=== PATIENT | male | born 1940 | race Caucasian/White ===

== ENCOUNTER 2019-06-14 10:58 | Inpatient (IN) | payer OTHER ==
[~2019-06-14] VITALS: Ht 172.7 cm; Wt 53.9 kg
[2019-06-14 11:38] LABS: APTT 31.7 SECONDS (22.8-39.4); INR 1.15 (0.85-1.17); PROTIME 14.7 SECONDS (11.6-15.0)
[2019-06-14 11:44] LABS: CALC OSMOLALITY 277 mosm/kg (275-300); CALCIUM 9.1 mg/dL (8.5-10.1); CARBON DIOXIDE 34.8 mmol/L (21.0-32.0); CHLORIDE - SERUM 100 mmol/L (98-107); CREATININE - SERUM 0.8 mg/dL (0.6-1.3); GLUCOSE 123 mg/dL (74-106); POTASSIUM - SERUM 4.9 mmol/L (3.5-5.1); SODIUM 138 mmol/L (136-145); UREA NITROGEN 16 mg/dL (7-18); eGFR NON AFRICAN AMERICAN > 90 mL/min (90-120)
[2019-06-14 11:54] LABS: BASOPHILS 0.1 % (0-2); EOSINOPHILS 0.6 % (0-7); HEMATOCRIT 35.9 % (42.0-54.0); HEMOGLOBIN 12.1 g/dL (13.5-17.5); IMMATURE GRANULOCYTES 0.4 % (0-5); LYMPHOCYTES 13.9 % (15-50); MCH 30.6 pg (26.0-34.0); MCHC 33.7 g/dL (31.0-37.0); MCV 90.9 fL (80.0-100.0); MEAN PLATELET VOLUME 9.7 fL (7.4-10.4); MONOCYTES 10.6 % (2-11); NEUTROPHILS 74.4 % (40-80); RBC 3.95 10x6/uL (4.20-6.10); RDW 13.2 % (11.5-14.5)
[2019-06-14 11:55] LABS: PLATELET COUNT 187 10x3/uL (130-400)
[2019-06-14 12:05] LABS: ALBUMIN 3.4 g/dL (3.4-5.0); ALKALINE PHOSPHATASE 74 U/L (30-120); ALT (SGPT) 17 U/L (10-68); BILIRUBIN - TOTAL 0.82 mg/dL (0.2-1.3); CKMB 1.4 U/L (0.0-3.6); CREATINE KINASE 21 UL (21-232); PROTEIN - SERUM 7.7 g/dL (6.4-8.2)
[2019-06-14 12:07] LABS: TROPONIN-I < 0.017 ng/mL (0.000-0.060)
[2019-06-14 14:34] LABS: BILIRUBIN NEGATIVE (NEGATIVE); GLUCOSE NEGATIVE (NEGATIVE); KETONE NEGATIVE (NEGATIVE); NITRITE NEGATIVE (NEGATIVE); SPECIFIC GRAVITY 1.005 (1.005-1.020); UROBILINOGEN NORMAL (NORMAL)
[2019-06-14 15:29] LABS: CKMB 2.1 U/L (0.0-3.6); CREATINE KINASE 24 UL (21-232); TROPONIN-I 0.027 ng/mL (0.000-0.060)
--- NOTE | 2019-06-14 16:46 | NUR ---
RECIVED FROM ER TO ROOM 2129. ADMIT ASSESSMENT PER RN
[2019-06-14 21:01] LABS: CREATINE KINASE 25 UL (21-232)
[2019-06-14 21:09] LABS: TROPONIN-I 0.076 ng/mL (0.000-0.060)
[2019-06-15 05:38] LABS: BASOPHILS 0.4 % (0-2); EOSINOPHILS 1.3 % (0-7); HEMATOCRIT 32.7 % (42.0-54.0); IMMATURE GRANULOCYTES 0.2 % (0-5); LYMPHOCYTES 27.4 % (15-50); MCH 30.3 pg (26.0-34.0); MCHC 33.6 g/dL (31.0-37.0); MCV 90.1 fL (80.0-100.0); MEAN PLATELET VOLUME 9.7 fL (7.4-10.4); NEUTROPHILS 53.7 % (40-80); PLATELET COUNT 158 10x3/uL (130-400); RBC 3.63 10x6/uL (4.20-6.10); RDW 13.1 % (11.5-14.5)
[2019-06-15 06:06] LABS: ALBUMIN 2.8 g/dL (3.4-5.0); ALKALINE PHOSPHATASE 61 U/L (30-120); ALT (SGPT) 15 U/L (10-68); BILIRUBIN - TOTAL 0.98 mg/dL (0.2-1.3); CALC OSMOLALITY 274 mosm/kg (275-300); CALCIUM 8.5 mg/dL (8.5-10.1); CHLORIDE - SERUM 101 mmol/L (98-107); CREATININE - SERUM 0.7 mg/dL (0.6-1.3); GLUCOSE 89 mg/dL (74-106); MAGNESIUM - SERUM 1.9 mg/dL (1.8-2.4); POTASSIUM - SERUM 4.2 mmol/L (3.5-5.1); PROTEIN - SERUM 6.7 g/dL (6.4-8.2); SODIUM 138 mmol/L (136-145); UREA NITROGEN 13 mg/dL (7-18); eGFR NON AFRICAN AMERICAN > 90 mL/min (90-120)
[2019-06-15 06:21] LABS: WBC 5.4 10x3/uL (4.8-10.8)
[2019-06-15 10:16] LABS: CKMB 2.9 U/L (0.0-3.6); CREATINE KINASE 26 UL (21-232); TROPONIN-I 0.084 ng/mL (0.000-0.060)
--- NOTE | 2019-06-15 13:31 | NUR ---
I have reviewed this patient and I concur with the Shift Assessment completed by the Licensed Practical Nurse today this shift.
[2019-06-15 13:41] VITALS: Ht 172.7 cm; Wt 53.9 kg
--- NOTE | 2019-06-15 19:22 | NUR ---
PT AROUSES EASILY BED LOW AND LOCKED CALL LIGHT WITH PT
--- NOTE | 2019-06-16 03:47 | NUR ---
I have reviewed this patient and I concur with the Shift Assessment completed by the Licensed Practical Nurse today this shift.
[2019-06-16 05:04] LABS: BASOPHILS 0.1 % (0-2); EOSINOPHILS 0 % (0-7); HEMATOCRIT 33.6 % (42.0-54.0); HEMOGLOBIN 11.5 g/dL (13.5-17.5); IMMATURE GRANULOCYTES 0.1 % (0-5); MCH 30.3 pg (26.0-34.0); MCHC 34.2 g/dL (31.0-37.0); MCV 88.4 fL (80.0-100.0); MONOCYTES 13.3 % (2-11); NEUTROPHILS 74.5 % (40-80); PLATELET COUNT 178 10x3/uL (130-400); RDW 12.8 % (11.5-14.5)
[2019-06-16 05:15] LABS: WBC 8.4 10x3/uL (4.8-10.8)
[2019-06-16 05:28] LABS: CALCIUM 8.8 mg/dL (8.5-10.1); CHLORIDE - SERUM 101 mmol/L (98-107); CREATININE - SERUM 0.8 mg/dL (0.6-1.3); MAGNESIUM - SERUM 2.1 mg/dL (1.8-2.4); POTASSIUM - SERUM 4.6 mmol/L (3.5-5.1); SODIUM 138 mmol/L (136-145); eGFR NON AFRICAN AMERICAN > 90 mL/min (90-120)
[2019-06-16 05:29] LABS: CALC OSMOLALITY 281 mosm/kg (275-300); GLUCOSE 145 mg/dL (74-106); UREA NITROGEN 21 mg/dL (7-18)
--- NOTE | 2019-06-16 08:00 | NUR ---
ASSESSMENT DONE. DENIES NEEDS
--- NOTE | 2019-06-16 13:13 | NUR ---
I have reviewed this patient and I concur with the Shift Assessment completed by the Licensed Practical Nurse today this shift.
--- NOTE | 2019-06-16 16:09 | NUR ---
WITHOUT CHAGES OR DISTRESS NOTED AT THIS TIME. NILA NEEDS
--- NOTE | 2019-06-16 19:13 | MORECARE ---
CASE MANAGEMENT DISCHARGE SUMMARY PATIENT: SONNY NEGRON UNIT: [id number] ADM DATE: 06/14/19 AGE: 79 : 39 SEX: M ROOM/BED: D.2125 AUTHOR: BERLIN FITZPATRICK PHYSICIAN: REFERRING PHYSICIAN: AUDRA LOPES MD DATE OF SERVICE: 06/16/19 Discharge Plan Patient Name: SONNY NEGRON [facility] [facility] 1940 Planned Disposition: Penitentiary Facility Anticipated Discharge Date: Discharge Date: Expected LOS: Initial Reviewer: [id number] Initial Review Date: 06/16/2019 Generated: 06/16/19 8:13 pm DCPIA - Discharge Planning Initial Assessment Updated by [email or web address]: Barrett Duval on 06/16/19 7:10 pm * Is the patient Alert and Oriented? Yes * How many steps to enter\exit or inside your home? NONE * PCP DR. RIZVI * Pharmacy [facility] * Preadmission Environment Home with Family * ADLs Independent * Equipment Nebulizer Walker * Other Equipment [employer] * List name and contact numbers for known caregivers / representatives who currently or will assist patient after discharge: LEONEL NEGRON, SON, * Verbal permission to speak to the caregivers and representatives has been obtained from the patient. N/A * Community resources currently utilized Home Health * Please name any agencies selected above. [facility] * Additional services required to return to the preadmission environment? Yes * Can the patient safely return to the preadmission environment? Yes * Has this patient been hospitalized within the prior 30 days at any hospital? Yes Patient Name: SONNY NEGRON Page 20751 at 1913 All edits/amendments must be made on the electronic document DICTATION DATE: 06/16/191912 STEEL PAN FORM PLACING SUPERVISOR: ELICEO 06/16/191912 RPT#: [id number] DC DATE: STATUS: ADM IN [facility] [address] [place] [address] END OF REPORT
--- NOTE | 2019-06-16 19:21 | MORECARE ---
CASE MANAGEMENT DISCHARGE SUMMARY PATIENT: SONNY NEGRON UNIT: [id number] ADM DATE: 06/14/19 AGE: 79 : 39 SEX: M ROOM/BED: D.8985 AUTHOR: NANETTEDOC PHYSICIAN: REFERRING PHYSICIAN: AUDRA LOPES MD DATE OF SERVICE: 06/16/19 Discharge Plan Patient Name: SONNY NEGRON Facility: [facility]:[place] : 1940 Planned Disposition: Custodial Facility Anticipated Discharge Date: Discharge Date: Expected LOS: Initial Reviewer: [id number] Initial Review Date: 06/16/2019 Generated: 06/16/19 8:20 pm Comments DCP- Discharge Planning Updated by [id number]: Barrett Duval on 06/16/19 6:[address] Patient Name: SONNY NEGRON Admission Status: ER Accout number: [id number] Admission Date: 06-14-2019 : 1940 Admission Diagnosis: Attending: AUDRA LOPES Current LOS: 2 Anticipated DC Date: Planned Disposition: Custodial Facility Primary Insurance: [employer] PLANNED EXTERNAL PROVIDER: [facility] Discharge Planning Comments: CM SPOKE TO LESLIE HERNANDEZUT ON 06-15-19, PT [facility] TO [facility]GE, [facility] WILL ACCEPT. CM OBTAINED CHOICE LETTER FROM PT. CM PROVIDED LESLIE HERNANDEZUT WITH REFERRAL FOR PLACEMENT. ON 05-16-19, CM MET WITH PT IN ROOM TO DISCUSS DISCHARGE PLANNING AND NEEDS. PT REPORTS HE WAS LIVING AT HOME AND HIS SON WAS WITH HIM. PT REPORTS BEING VERY WEAK AND HIS SON HAS TO GO HOME AND HAS A LIFE AND JOB. PT WANTS PLACEMENT AT [facility]. IMPORTANT MESSAGE FROM MEDICARE PROVIDED AND EXPLAINED. PT IS AWARE THAT [facility] HIS ACCEPTING AT HOSPITAL DISCHARGE. FOR DISCHARGE, FAX DISCHARGE INFORMATION TO [facility] AT [phone], NURSE REPORT TO BE CALLED TO [facility] AT [phone]. [facility] TO ARRANGE VAN TRANSPORTATION. Public Relations Consultant: Barrett Duval DCPIA - Discharge Planning Initial Assessment Updated by [email or web address]: Barrett Duval on 06/16/19 7:10 pm * Is the patient Alert and Oriented? Yes * How many steps to enter\exit or inside your home? NONE * PCP DR. RIZVI * Pharmacy [facility] * Preadmission Environment Home with Family * ADLs Independent * Equipment Nebulizer Walker * Other Equipment [employer] * List name and contact numbers for known caregivers / representatives who currently or will assist patient after discharge: LEONEL NEGRON, SON, * Verbal permission to speak to the caregivers and representatives has been obtained from the patient. N/A * Community resources currently utilized Home Health * Please name any agencies selected above. [facility] * Additional services required to return to the preadmission environment? Yes * Can the patient safely return to the preadmission environment? Yes * Has this patient been hospitalized within the prior 30 days at any hospital? Yes Coverage Notice Reviewer: [id number] Darin Duval Notice Issued Date-Time: 06/16/2019 9:45 Notice Type: IM Discharge Notice Notice Delivered To: Patient Relationship to Patient: Supervisor Wall Mirror Department Name: Delivery Method: HAND - Hand Delivered Rachelle Days: Prior Verbal Notification: Recipient Understood Notice: Yes Recipient Signature: Yes Med Rec Note Co-signed by Attending: Coverage Notice Comment: Reviewer: [email or web address] Darin Duval Notice Issued Date-Time: 06/15/2019 14:35 Notice Type: Patient Choice Letter Notice Delivered To: Patient Relationship to Patient: Supervisor Wall Mirror Department Name: Delivery Method: HAND - Hand Delivered Rachelle Days: Prior Verbal Notification: Recipient Understood Notice: Yes Recipient Signature: Yes Med Rec Note Co-signed by Attending: Coverage Notice Comment: [facility] Last DP export: 06/16/19 6:13 p Patient Name: SONNY NEGRON Page 91931 at 1921 All edits/amendments must be made on the electronic document DICTATION DATE: 06/16/191919 SETTER HELPER: ELICEO 06/16/191919 RPT#: [id number] ND DATE: STATUS: ADM IN [facility] [address] [place] [address] END OF REPORT
[2019-06-17 04:57] LABS: BASOPHILS 0 % (0-2); EOSINOPHILS 0 % (0-7); HEMATOCRIT 31.7 % (42.0-54.0); HEMOGLOBIN 10.7 g/dL (13.5-17.5); IMMATURE GRANULOCYTES 0.5 % (0-5); MCH 30.1 pg (26.0-34.0); MCHC 33.8 g/dL (31.0-37.0); MEAN PLATELET VOLUME 9.5 fL (7.4-10.4); MONOCYTES 7.3 % (2-11); NEUTROPHILS 81.2 % (40-80); PLATELET COUNT 177 10x3/uL (130-400); RBC 3.56 10x6/uL (4.20-6.10); WBC 6.6 10x3/uL (4.8-10.8)
[2019-06-17 05:38] LABS: CALC OSMOLALITY 278 mosm/kg (275-300); CALCIUM 8.5 mg/dL (8.5-10.1); CARBON DIOXIDE 33.5 mmol/L (21.0-32.0); CHLORIDE - SERUM 102 mmol/L (98-107); CREATININE - SERUM 0.7 mg/dL (0.6-1.3); GLUCOSE 148 mg/dL (74-106); POTASSIUM - SERUM 4.3 mmol/L (3.5-5.1); SODIUM 137 mmol/L (136-145); UREA NITROGEN 18 mg/dL (7-18); eGFR NON AFRICAN AMERICAN > 90 mL/min (90-120)
--- NOTE | 2019-06-17 07:15 | NUR ---
RECEIVED PT IN BED EYES CLOSED RESP UNLABORED SKIN W/D COLOR WNL NAD NOTED
--- NOTE | 2019-06-17 19:30 | NUR ---
RECEIVED REPORT, WILL ASSUME CARE OF PT, DENIES ANY NEEDS AT THIS TIME, BED IS LOW, SRX2, CALL LIGHT IN REACH, WILL CONTINUE PLAN OF CARE
--- NOTE | 2019-06-17 21:00 | NUR ---
PM MEDS GIVEN, PROVIDED ICE WATER, CALL LIGHT IN REACH
--- NOTE | 2019-06-18 04:37 | NUR ---
I have reviewed this patient and I concur with the Shift Assessment completed by the Licensed Practical Nurse today this shift.
[2019-06-18 05:19] LABS: BASOPHILS 0 % (0-2); EOSINOPHILS 0 % (0-7); HEMATOCRIT 33.5 % (42.0-54.0); HEMOGLOBIN 11.3 g/dL (13.5-17.5); IMMATURE GRANULOCYTES 0.3 % (0-5); LYMPHOCYTES 11.6 % (15-50); MCH 30.1 pg (26.0-34.0); MCHC 33.7 g/dL (31.0-37.0); MCV 89.3 fL (80.0-100.0); MEAN PLATELET VOLUME 9.8 fL (7.4-10.4); MONOCYTES 8.3 % (2-11); NEUTROPHILS 79.8 % (40-80); PLATELET COUNT 169 10x3/uL (130-400); RBC 3.75 10x6/uL (4.20-6.10); WBC 7.3 10x3/uL (4.8-10.8)
[2019-06-18 06:01] LABS: CALC OSMOLALITY 283 mosm/kg (275-300); CALCIUM 9.1 mg/dL (8.5-10.1); CARBON DIOXIDE 33.6 mmol/L (21.0-32.0); CHLORIDE - SERUM 103 mmol/L (98-107); CREATININE - SERUM 0.6 mg/dL (0.6-1.3); GLUCOSE 165 mg/dL (74-106); POTASSIUM - SERUM 4.3 mmol/L (3.5-5.1); SODIUM 139 mmol/L (136-145); UREA NITROGEN 18 mg/dL (7-18); eGFR NON AFRICAN AMERICAN > 90 mL/min (90-120)
--- NOTE | 2019-06-18 07:20 | NUR ---
RECIEVE REPORT. ALERT AND ORIENTED X4. ELECTROLYTES WNL. DENIES ANY NEEDS. SINUS RYTHM ON TELEMETRY. DENIES ANY NEEDS. CONTINUE PLAN OF CARE AND SAFETY PRECAUTIONS.
--- NOTE | 2019-06-18 13:40 | NUR ---
ALERT AND ORIENTED X4. SITTING UP IN BED. REPORTS SOB. O2 SAT 87% 4L NC. INCREASE O2 TO 5L HIGH FLOW NC O2 SAT 93%. UNABLE TO RECIEVE UPDRAFT DUE TO UNCONTROLLED AFIB 143. NOTIFIED.
--- NOTE | 2019-06-18 14:26 | NUR ---
NO TX GIVEN PT HAS HR 147
--- NOTE | 2019-06-18 15:00 | NUR ---
ALERT AND ORIENTED X4. INITIATE CARDIZEM DRIP @ 10mL/HR ORDERED. BP-178/98, O2 SAT 96% WITH 9L HIGH FLOW. UNCONTROLLED AFIB 146. CONTINUE TO MONITOR. CONTINUE PLAN OF CARE AND SAFETY PRECAUTIONS.
--- NOTE | 2019-06-18 17:00 | NUR ---
ALERT AND ORIENTED X4. SITTING UP IN BED. BP-143/79, HR-116 UNCONTROLLED AFIB. RESPIRATIONS NONLABORED. DENIES ANY NEEDS AT THIS TIME. CONTINUE PLAN OF CARE AND SAFETY PRECAUTIONS.
--- NOTE | 2019-06-18 19:30 | NUR ---
RECEIVED REPORT, WILL ASSUME CARE OF PT, DENIES ANY NEEDS AT THIS TIME, BED IS LOW, SRX2, CALL LIGHT IN REACH, WILL CONTINUE PLAN OF CARE
--- NOTE | 2019-06-19 04:50 | NUR ---
I have reviewed this patient and I concur with the Shift Assessment completed by the Licensed Practical Nurse today this shift.
[2019-06-19 06:02] LABS: BASOPHILS 0 % (0-2); EOSINOPHILS 0 % (0-7); HEMATOCRIT 31.9 % (42.0-54.0); HEMOGLOBIN 10.7 g/dL (13.5-17.5); IMMATURE GRANULOCYTES 0.2 % (0-5); LYMPHOCYTES 3.6 % (15-50); MCHC 33.5 g/dL (31.0-37.0); MCV 89.4 fL (80.0-100.0); MEAN PLATELET VOLUME 9.5 fL (7.4-10.4); MONOCYTES 4.7 % (2-11); NEUTROPHILS 91.5 % (40-80); PLATELET COUNT 164 10x3/uL (130-400); RBC 3.57 10x6/uL (4.20-6.10); RDW 13.2 % (11.5-14.5)
[2019-06-19 06:03] LABS: WBC 16.9 10x3/uL (4.8-10.8)
[2019-06-19 06:56] LABS: CALCIUM 8.8 mg/dL (8.5-10.1); CARBON DIOXIDE 33.9 mmol/L (21.0-32.0); CHLORIDE - SERUM 102 mmol/L (98-107); GLUCOSE 207 mg/dL (74-106); POTASSIUM - SERUM 4.3 mmol/L (3.5-5.1); SODIUM 138 mmol/L (136-145); TROPONIN-I 0.021 ng/mL (0.000-0.060)
[2019-06-19 06:57] LABS: CALC OSMOLALITY 286 mosm/kg (275-300); CREATININE - SERUM 0.8 mg/dL (0.6-1.3); UREA NITROGEN 27 mg/dL (7-18); eGFR NON AFRICAN AMERICAN > 90 mL/min (90-120)
--- NOTE | 2019-06-19 07:20 | NUR ---
RECIEVE REPORT. RESTING IN BED WITH EYES CLOSED. BP-96/48, HR-64 SINUS RYTHM. CARDIZEM DRIP STOPPED. RESPIRATIONS NONLABORED. O2 @ 8LHF O2 SAT 100%. DENIES ANY NEEDS. CONTINUE PLAN OF CARE AND SAFETY PRECAUTIONS.
--- NOTE | 2019-06-19 11:54 | EC ---
PATIENT:SONNY NEGRON DATE OF SERVICE: 06/14/19 SEX: M MEDICAL RECORD: [id number] DATE OF : [birth year] LOCATION:D.M2 D.212 AGE OF PATIENT: 79 ADMISSION DATE: 06/14/19 REFERRING PHYSICIAN: INTERPRETING PHYSICIAN: LUCIA MARIN MD ECHOCARDIOGRAM REPORT ECHO CHARGES 5 ECHO LIMITED Date: 06/15/19 CLINICAL DIAGNOSIS: DYSPNEA HC CAD/STENTS ECHOCARDIOGRAPHIC MEASUREMENTS (adult normal given) AC root (d.<3.7cm) cm LV Septum d (<1.2 cm> cm Valve Excursion cm LV Septum (systole) cm Left Atria (s.<4.0cm> cm LVPW d(<1.2cm) cm RV (d.<2.3cm) cm LVPW (sytole) cm LV diastole(<5.6CM) cm MV E-F(>70mm/sec) cm LV systole cm LVOT Diameter cm MV exc.(>10mm) cm Est.ejection fraction (50-75%) % DOPPLER: LVIT cm/sec A cm/sec E cm/sec LA cm/sec RVSP 15 mmHg LVOT cm/sec AOP1/2T m/s Asc. Ao cm/sec RVOT cm/sec RA cm/sec PA cm/sec AV Gradient Peak mmHg AV Mean mmHg AV Area cm MV Gradient Peak mmHg MV Mean mmHg MV Area cm COMMENTS: Superintendent Plant Protection: Jono GARCIA Biomechanical Engineer: 1 Dr. Marin TAPE# PACS Pericardial Effusion N DATE OF SERVICE: PROCEDURE: Limited echo for ejection fraction. FINDINGS: Left ventricular chamber size is within normal limits. Left ventricular systolic function is normal at 50%. TRANSINT:[id number] Voice Confirmation ID: [id number] DOCUMENT ID: [id number] ECHOCARDIOGRAM REPORT [id number] SONNY NEGRON LUCIA MARIN MD at 1154 CC: [id number] DICTATION DATE: 06/16/19 1001 MANAGER FORMS: 06/16/19 1228 ADM IN [place] [id number] [place] [address]
--- NOTE | 2019-06-19 11:54 | CN ---
PATIENT NAME:SONNY MCCARTY MEDICAL RECORD: [id number] : 38 LOCATION:. D.2125 ADMIT DATE: 06/14/19 ACCOUNT: [id number] CONSULTING PHYSICIAN: LUCIA GARCIA MD REFERRING PHYSICIAN: AUDRA LOPES MD DATE OF CONSULTATION: 06/16/2019 DIAGNOSES: 1. Shortness of breath, dyspnea on exertion. 2. Chronic obstructive pulmonary disease. 3. Coronary artery disease. 4. Status post 3-vessel PTCA stent. 5. Hyperlipidemia. 6. Hypertension. HISTORY OF PRESENT ILLNESS: Mr. Mccarty presents with shortness of breath, no anginal symptomatology just shortness of breath that he is status post 3-vessel PTCA stent. After the PTCA stent, his ejection fraction was 55%. No significant valvular disease was present. He has no ST-T abnormalities. Troponin is normal at this time. He has been treated for COPD. His shortness of breath is improving. REVIEW OF SYSTEMS: The patient reports easy bruising but reports no swollen glands. The patient reports no fever, no night sweats, no significant weight gain, no significant weight loss. No significant exercise tolerance. The patient reports no dry eyes, no irritation, no vision change. Patient reports no difficulty hearing and no ear pain. Patient reports no frequent nose bleeds or nose and sinus problems. Patient reports on arm pain on exertion. No shortness of breath while lying down. No history of heart murmur. Patient reports no cough, no wheezing or coughing up blood. Patient reports no abdominal pain, no vomiting. Normal appetite. No diarrhea and not vomiting blood. No nausea and no constipation. Patient reports no incontinence. No difficulty urinating. No hematuria. No increased frequency. Patient reports no muscle aches. No weakness, no arthralgias, no back pain. No swelling of the extremities. Patient reports no abnormal mole, no jaundice, no rashes. Reports no loss of consciousness. No weakness and no numbness. No seizures, dizziness, or headaches. The patient reports no depression, no sleep disturbance, feeling safe in a relationship and no alcohol abuse. Patient reports on fatigue. Reports no runny nose or sinus pressure. No itching, no hives, and no frequent sneezing. PHYSICAL EXAMINATION: CONSTITUTIONAL/GENERAL APPEARANCE: Well nourished, well developed, appears stated age. EYES: Lids and conjunctivae noninjected. No discharge. No pallor. ENT: Lips within normal limit. No cyanosis. No pallor. NECK: Carotid arteries, bilateral normal upstroke. No bruits. No thrills. No jugular venous pressure or distention. CERVICAL LYMPH NODES: Nontender. Nonenlarged. THYROID: Not enlarged. No nodules. CARDIOVASCULAR: Precordial exam, nondisplaced. No heaves or pericardial thrills. Rate and rhythm, regular. Heart sounds, normal S1, normal S2. No S3, no gallop, no rub. Systolic murmur, not heard. Diastolic murmur, not heard. RESPIRATORY: Respiratory effort, unlabored. Normal curvature. No thoracic deformity. No chest wall tenderness. Percussion, resonant. Auscultation, CONSULT REPORT [id number] OSNNY MCCARTY clear. No wheezes, no rales, no rhonchi. ABDOMEN: Soft, nondistended, nontender. No abdominal pain, no vomiting and normal appetite. MUSCULOSKELETAL: No joint tenderness, normal gait, normal tone. SKIN: Warm and dry. OVERALL IMPRESSION: Shortness of breath. At this time, this is secondary to his COPD. No other cardiac workup or treatment is necessary. TRANSINT:[id number] Voice Confirmation ID: [id number] DOCUMENT ID: [id number] LUCIA GARCIA MD at 1154 CC: [id number] DICTATION DATE: 06/16/19 1300 STRAINER CLEANER: 06/16/19 2239 ADM IN [place] [id number] [place] [address]
--- NOTE | 2019-06-19 15:13 | NUR ---
Nutrition Follow-up: Ate ~75% of breakfast this AM but reports that lunch was too soon after and was not hungry. Attempting to drink Boost but causes some GI upset. Discussed daily wts with nurse registration manager, Katie. Diet: Cardiac, Boost TID PO intake: 61% avg x 7 meals Wt: 117# (06/17 - standing) Labs noted: Glu 207 Meds noted: Prednisone -Need new wt; daily wts ordered. -[place] food preferences. -RD following.
--- NOTE | 2019-06-19 15:53 | NUR ---
ASSIST UP TO RESTROOM. O2 SAT DROPS TO 90% WHEN AMBULATING. 02 @ 2L NC. DENIES PAIN. CONTINUE PLAN OF CARE AND SAFETY PRECAUTIONS. SINUS RYTHM 74.
--- NOTE | 2019-06-19 19:24 | NUR ---
RECEIVED LAYING IN BED WITH HOB ELEVATED. ALERT AND ORIENTED X4. USES URINAL IN BED. O2@ 2 LITERS PER N/C IN PLACE. IV TO LT FA SL. TELEMETRY IN PLACE. FALSE PASS. DENIES ANY NEEDS AT THIS TIME.
[2019-06-20 06:51] LABS: BASOPHILS 0 % (0-2); EOSINOPHILS 0 % (0-7); HEMATOCRIT 33.7 % (42.0-54.0); HEMOGLOBIN 11.3 g/dL (13.5-17.5); IMMATURE GRANULOCYTES 0.3 % (0-5); LYMPHOCYTES 8.2 % (15-50); MCH 30.2 pg (26.0-34.0); MCHC 33.5 g/dL (31.0-37.0); MCV 90.1 fL (80.0-100.0); MONOCYTES 5.1 % (2-11); NEUTROPHILS 86.4 % (40-80); PLATELET COUNT 186 10x3/uL (130-400); RBC 3.74 10x6/uL (4.20-6.10); RDW 12.9 % (11.5-14.5)
[2019-06-20 07:01] LABS: CALC OSMOLALITY 286 mosm/kg (275-300); CALCIUM 9.1 mg/dL (8.5-10.1); CARBON DIOXIDE 36.6 mmol/L (21.0-32.0); CHLORIDE - SERUM 101 mmol/L (98-107); CREATININE - SERUM 0.7 mg/dL (0.6-1.3); GLUCOSE 170 mg/dL (74-106); POTASSIUM - SERUM 4.4 mmol/L (3.5-5.1); SODIUM 139 mmol/L (136-145); UREA NITROGEN 27 mg/dL (7-18); eGFR NON AFRICAN AMERICAN > 90 mL/min (90-120)
--- NOTE | 2019-06-20 08:09 | NUR ---
ASSESSMENT DONE. DENIES NEEDS
[2019-06-20 09:00] VITALS: BP 157/77
--- NOTE | 2019-06-20 09:32 | NUR ---
I have reviewed this patient and I concur with the Shift Assessment completed by the Licensed Practical Nurse today this shift.
--- NOTE | 2019-06-20 13:31 | MORECARE ---
CASE MANAGEMENT DISCHARGE SUMMARY PATIENT: SONNY NEGRON UNIT: [id number] ADM DATE: 06/14/19 AGE: 79 : 39 SEX: M ROOM/BED: D.2128 AUTHOR: NANETTE,DOC PHYSICIAN: REFERRING PHYSICIAN: AUDRA LOPES MD DATE OF SERVICE: 06/20/19 Discharge Plan Patient Name: SONNY NEGRON Facility: [facility]:[place] : 1940 Planned Disposition: Fci Facility Anticipated Discharge Date: Discharge Date: Expected LOS: Initial Reviewer: [email or web address] Initial Review Date: 06/16/2019 Generated: 06/20/19 2:30 pm DCP- Discharge Planning Updated by [email or web address]: Barrett Duval on 06/16/19 6:[address] Patient Name: SONNY NEGRON Admission Status: ER Accout number: [id number] Admission Date: 06-14-2019 : 1940 Admission Diagnosis: Attending: AUDRA LOPES Current LOS: 2 Anticipated DC Date: Planned Disposition: Fci Facility Primary Insurance: [employer] PLANNED EXTERNAL PROVIDER: [facility], MEDICARE REHAB BED Discharge Planning Comments: CM SPOKE TO [facility]LIE [facility]SU ON 06-15-19, [facility], [facility] WILL ACCEPT. CM OBTAINED CHOICE LETTER FROM PT. CM PROVIDED LESLIE HERNANDEZUT WITH REFERRAL FOR PLACEMENT. ON 05-16-19, CM MET WITH PT IN ROOM TO DISCUSS DISCHARGE PLANNING AND NEEDS. PT REPORTS HE WAS LIVING AT HOME AND HIS SON WAS WITH HIM. PT REPORTS BEING VERY WEAK AND HIS SON HAS TO GO HOME AND HAS A LIFE AND JOB. PT WANTS PLACEMENT AT [facility]. IMPORTANT MESSAGE FROM MEDICARE PROVIDED AND EXPLAINED. PT IS AWARE THAT [facility] HIS ACCEPTING AT HOSPITAL DISCHARGE. FOR DISCHARGE, FAX DISCHARGE INFORMATION TO [facility] AT [phone], NURSE REPORT TO BE CALLED TO [facility] AT [phone]. [facility] TO ARRANGE VAN TRANSPORTATION. Psychology Physician: Barrett Duval DCPIA - Discharge Planning Initial Assessment Updated by [email or web address]: Barrett Duval on 06/16/19 7:10 pm * Is the patient Alert and Oriented? Yes * How many steps to enter\exit or inside your home? NONE * PCP DR. RIZVI * Pharmacy [facility] * Preadmission Environment Home with Family * ADLs Independent * Equipment Nebulizer Walker * Other Equipment [employer] * List name and contact numbers for known caregivers / representatives who currently or will assist patient after discharge: LEONEL NEGRON, SON, * Verbal permission to speak to the caregivers and representatives has been obtained from the patient. N/A * Community resources currently utilized Home Health * Please name any agencies selected above. [facility] * Additional services required to return to the preadmission environment? Yes * Can the patient safely return to the preadmission environment? Yes * Has this patient been hospitalized within the prior 30 days at any hospital? Yes External Providers External Provider: [facility] Next Contact Date: 06/20/2019 Service Request Date: Service Type: Resolution: Reviewer: Comments: Coverage Notice Reviewer: [email or web address] Duval Notice Issued Date-Time: 06/16/2019 9:45 Notice Type: IM Discharge Notice Notice Delivered To: Patient Relationship to Patient: Valve Fitter Name: Delivery Method: HAND - Hand Delivered Rachelle Days: Prior Verbal Notification: Recipient Understood Notice: Yes Recipient Signature: Yes Med Rec Note Co-signed by Attending: Coverage Notice Comment: Reviewer: ANTHONY Duval Notice Issued Date-Time: 06/15/2019 14:35 Notice Type: Patient Choice Letter Notice Delivered To: Patient Relationship to Patient: Valve Fitter Name: Delivery Method: HAND - Hand Delivered Rachelel Days: Prior Verbal Notification: Recipient Understood Notice: Yes Recipient Signature: Yes Med Rec Note Co-signed by Attending: Coverage Notice Comment: [facility] Last DP export: 06/16/19 6:21 p Patient Name: SONNY NEGRON Page 51114 at 1331 All edits/amendments must be made on the electronic document DICTATION DATE: 06/20/191329 ACCOUNTS RECEIVABLE MANAGER: ELICEO 06/20/19 133 RPT#: [id number] DC DATE: STATUS: ADM IN [facility] [address] [place] [address] END OF REPORT
--- NOTE | 2019-06-20 13:39 | MORECARE ---
CASE MANAGEMENT DISCHARGE SUMMARY PATIENT: SONNY NEGRON UNIT: [id number] ADM DATE: 06/14/19 AGE: 79 : 39 SEX: M ROOM/BED: D.6485 AUTHOR: NANETTE,DOC PHYSICIAN: REFERRING PHYSICIAN: AUDRA LOPES MD DATE OF SERVICE: 06/20/19 Discharge Plan Patient Name: SONNY NEGRON Facility: [facility]:[place] : 1940 Planned Disposition: Assisted Facility Anticipated Discharge Date: Discharge Date: Expected LOS: Initial Reviewer: [email or web address] Initial Review Date: 06/16/2019 Generated: 06/20/19 2:38 pm Comments DCP- Discharge Planning Updated by [id number]: Barrett Duval on 06/20/19 12:[address] Patient Name: SONNY NEGRON Encounter No: [id number] : 1940 Primary Insurance: NOVASYSMCR Anticipated DC Date: Planned Disposition: Assisted Facility External Planned Provider: [facility], MEDICARE REHAB BED Discharge Planning Comments: CM SPOKE TO [facility], , WHO INFORMED CM THAT THEY ARE PENDING AUTHORIZATION FOR SKILLED CARE FROM PT'S INSURANCE COMPANY AND NEED UPDATE; CM FAXED REFERRAL UPDATE TO [facility] OF [facility] AT [phone]. ORDER FOR OCCUPATIONAL THERAPY EVALUATION REQUESTED. PT HAS MANAGED MEDICARE AND REQUIRES OT EVALUATION FOR INSURANCE AUTHORIZATION REQUEST.. [facility] WILL NEED OCCUPATIONAL THERAPY EVALUATION FAXED TO [facility] FOR INSURANCE AUTHORIZATION FOR SKILLED / REHAB SERVICES. CM WAITING INSURANCE AUTHORIZATION FOR REHAB SERVICES AT [facility] WHO PLANS TO ACCEPT PT AT DISCHARGE. Evening Sitter: Barrett Duval DCP- Discharge Planning Updated by [id number]: Barrett Duval on 06/16/19 6:[address] Patient Name: SONNY NEGRON Admission Status: ER Accout number: [id number] Admission Date: 06-14-2019 : 1940 Admission Diagnosis: Attending: AUDRA LOPES Current LOS: 2 Anticipated DC Date: Planned Disposition: Assisted Facility Primary Insurance: NOVASYSMCR PLANNED EXTERNAL PROVIDER: [facility], MEDICARE REHAB BED Discharge Planning Comments: CM SPOKE TO [facility] ON 06-15-19, PT WANTS TO GO TO [facility] IN [facility]ILLED BED AT DISCHARGE, [facility] WILL ACCEPT. CM OBTAINED CHOICE LETTER FROM PT. CM PROVIDED [facility] WITH REFERRAL FOR PLACEMENT. ON 05-16-19, CM MET WITH PT IN ROOM TO DISCUSS DISCHARGE PLANNING AND NEEDS. PT REPORTS HE WAS LIVING AT HOME AND HIS SON WAS WITH HIM. PT REPORTS BEING VERY WEAK AND HIS SON HAS TO GO HOME AND HAS A LIFE AND JOB. PT WANTS PLACEMENT AT [facility]. IMPORTANT MESSAGE FROM MEDICARE PROVIDED AND EXPLAINED. PT IS AWARE THAT [facility] HIS ACCEPTING AT HOSPITAL DISCHARGE. FOR DISCHARGE, FAX DISCHARGE INFORMATION TO [facility] AT [phone], NURSE REPORT TO BE CALLED TO [facility] AT [phone]. [facility] TO ARRANGE VAN TRANSPORTATION. Evening Sitter: Barrett Duval DCA - Discharge Planning Initial Assessment Updated by [email or web address]: Barrett Duval on 06/16/19 7:10 pm * Is the patient Alert and Oriented? Yes * How many steps to enter\exit or inside your home? NONE * PCP DR. RIZVI * Pharmacy [facility] * Preadmission Environment Home with Family * ADLs Independent * Equipment Nebulizer Walker * Other Equipment [employer] * List name and contact numbers for known caregivers / representatives who currently or will assist patient after discharge: LEONEL NEGRON, SON, * Verbal permission to speak to the caregivers and representatives has been obtained from the patient. N/A * Community resources currently utilized Home Health * Please name any agencies selected above. [facility] * Additional services required to return to the preadmission environment? Yes * Can the patient safely return to the preadmission environment? Yes * Has this patient been hospitalized within the prior 30 days at any hospital? Yes Coverage Notice Reviewer: [id number] Darin Duval Notice Issued Date-Time: 06/16/2019 9:45 Notice Type: IM Discharge Notice Notice Delivered To: Patient Relationship to Patient: Flipping Machine Operator Name: Delivery Method: HAND - Hand Delivered Rachelle Days: Prior Verbal Notification: Recipient Understood Notice: Yes Recipient Signature: Yes Med Rec Note Co-signed by Attending: Coverage Notice Comment: Reviewer: [id number] Duval Notice Issued Date-Time: 06/15/2019 14:35 Notice Type: Patient Choice Letter Notice Delivered To: Patient Relationship to Patient: Flipping Machine Operator Name: Delivery Method: HAND - Hand Delivered Rachelle Days: Prior Verbal Notification: Recipient Understood Notice: Yes Recipient Signature: Yes Med Rec Note Co-signed by Attending: Coverage Notice Comment: ROHAN Boyd DP export: 06/20/19 12:31 p Patient Name: SONNY NEGRON Page 30018 at 1339 All edits/amendments must be made on the electronic document DICTATION DATE: 06/20/191337 DIRECTOR OF PHYSICAL THERAPY: ELICEO 06/20/191337 RPT#: [id number] DC DATE: STATUS: ADM IN [facility] [address] [place] [address] END OF REPORT
--- NOTE | 2019-06-20 14:45 | MORECARE ---
CASE MANAGEMENT DISCHARGE SUMMARY PATIENT: SONNY NEGRON UNIT: [id number] ADM DATE: 06/14/19 AGE: 79 : 39 SEX: M ROOM/BED: D.9513 AUTHOR: NANETTE,BERLIN PHYSICIAN: REFERRING PHYSICIAN: AUDRA LOPES MD DATE OF SERVICE: 06/20/19 Discharge Plan Patient Name: SONNY NEGRON Facility: [facility]:[place] : 1940 Planned Disposition: Prison Facility Anticipated Discharge Date: 06/20/19 Discharge Date: Expected LOS: 6 Initial Reviewer: [id number] Initial Review Date: 06/16/2019 Generated: 06/20/19 3:44 pm Comments DCP- Discharge Planning Updated by [id number]: Barrett Duval on 06/20/19 12:[address] Patient Name: SONNY NEGRON Encounter No: [id number] : 1940 Primary Insurance: NOVASYSMCR Anticipated DC Date: Planned Disposition: Prison Facility External Planned Provider: [facility], MEDICARE REHAB BED Discharge Planning Comments: CM SPOKE TO [facility], , WHO INFORMED CM THAT THEY ARE PENDING AUTHORIZATION FOR SKILLED CARE FROM PT'S INSURANCE COMPANY AND NEED UPDATE; CM FAXED REFERRAL UPDATE TO [facility] AT [phone]. ORDER FOR OCCUPATIONAL THERAPY EVALUATION REQUESTED. PT HAS MANAGED MEDICARE AND REQUIRES OT EVALUATION FOR INSURANCE AUTHORIZATION REQUEST.. [facility] WILL NEED OCCUPATIONAL THERAPY EVALUATION FAXED TO [facility] FOR INSURANCE AUTHORIZATION FOR SKILLED / REHAB SERVICES. CM WAITING INSURANCE AUTHORIZATION FOR REHAB SERVICES AT [facility] WHO PLANS TO ACCEPT PT AT DISCHARGE. Wet Room Worker: Barrett Duval DCP- Discharge Planning Updated by [email or web address]: Barrett Duval on 06/16/19 6:[address] Patient Name: SONNY NEGRON Admission Status: ER Accout number: [id number] Admission Date: 06-14-2019 : 1940 Admission Diagnosis: Attending: AUDRA LOPES Current LOS: 2 Anticipated DC Date: Planned Disposition: Prison Facility Primary Insurance: NOVASYSMCR PLANNED EXTERNAL PROVIDER: [facility], MEDICARE REHAB BED Discharge Planning Comments: CM SPOKE TO [facility] ON 06-15-19, PT WANTS TO GO TO [facility] IN SKILLED BED AT DISCHARGE, [facility] WILL ACCEPT. CM OBTAINED CHOICE LETTER FROM PT. CM PROVIDED [facility] WITH REFERRAL FOR PLACEMENT. ON 05-16-19, CM MET WITH PT IN ROOM TO DISCUSS DISCHARGE PLANNING AND NEEDS. PT REPORTS HE WAS LIVING AT HOME AND HIS SON WAS WITH HIM. PT REPORTS BEING VERY WEAK AND HIS SON HAS TO GO HOME AND HAS A LIFE AND JOB. PT WANTS PLACEMENT AT [facility]. IMPORTANT MESSAGE FROM MEDICARE PROVIDED AND EXPLAINED. PT IS AWARE THAT [facility] HIS ACCEPTING AT HOSPITAL DISCHARGE. FOR DISCHARGE, FAX DISCHARGE INFORMATION TO [facility] AT [phone], NURSE REPORT TO BE CALLED TO [facility] AT [phone]. [facility] TO ARRANGE VAN TRANSPORTATION. Wet Room Worker: Barrett Duval DCPIA - Discharge Planning Initial Assessment Updated by [email or web address]: Barrett Duval on 06/16/19 7:10 pm * Is the patient Alert and Oriented? Yes * How many steps to enter\exit or inside your home? NONE * PCP DR. RIZVI * Pharmacy [facility] * Preadmission Environment Home with Family * ADLs Independent * Equipment Nebulizer Walker * Other Equipment [employer] * List name and contact numbers for known caregivers / representatives who currently or will assist patient after discharge: LEONEL NEGRON, CAMMIE, * Verbal permission to speak to the caregivers and representatives has been obtained from the patient. N/A * Community resources currently utilized Home Health * Please name any agencies selected above. [facility] * Additional services required to return to the preadmission environment? Yes * Can the patient safely return to the preadmission environment? Yes * Has this patient been hospitalized within the prior 30 days at any hospital? Yes Coverage Notice Reviewer: [id number] Darin Duval Notice Issued Date-Time: 06/16/2019 9:45 Notice Type: IM Discharge Notice Notice Delivered To: Patient Relationship to Patient: Petroleum Engineering Teacher Name: Delivery Method: HAND - Hand Delivered Rachelle Days: Prior Verbal Notification: Recipient Understood Notice: Yes Recipient Signature: Yes Med Rec Note Co-signed by Attending: Coverage Notice Comment: Reviewer: ANTHONY Duval Notice Issued Date-Time: 06/15/2019 14:35 Notice Type: Patient Choice Letter Notice Delivered To: Patient Relationship to Patient: Petroleum Engineering Teacher Name: Delivery Method: HAND - Hand Delivered Rachelle Days: Prior Verbal Notification: Recipient Understood Notice: Yes Recipient Signature: Yes Med Rec Note Co-signed by Attending: Coverage Notice Comment: ROHAN Last DP export: 06/20/19 12:39 p Patient Name: SONNY NEGRON Page 39251 at 1445 All edits/amendments must be made on the electronic document DICTATION DATE: 06/20/19 1444 MICA INSPECTOR: ELICEO 06/20/19 1444 RPT#: [id number] DC DATE: STATUS: ADM IN [facility] [address] [place] [address] END OF REPORT
--- NOTE | 2019-06-20 14:53 | MORECARE ---
CASE MANAGEMENT DISCHARGE SUMMARY PATIENT: SONNY NEGRON UNIT: [id number] ADM DATE: 06/14/19 AGE: 79 : 39 SEX: M ROOM/BED: D.0089 AUTHOR: BERLIN FITZPATRICK PHYSICIAN: REFERRING PHYSICIAN: AUDRA LOPES MD DATE OF SERVICE: 06/20/19 Discharge Plan Patient Name: SONNY NEGRON Facility: [facility]:[place] : 1940 Planned Disposition: [facility] Facility Anticipated Discharge Date: 06/20/19 Discharge Date: Expected LOS: 6 Initial Reviewer: [id number] Initial Review Date: 06/16/2019 Generated: 06/20/19 3:52 pm Comments DCP- Discharge Planning Updated by [email or web address]: Barrett Duval on 06/20/19 1:[address] Patient Name: SONNY NEGRON Encounter No: [id number] : 1940 Primary Insurance: NOVASY[employer]edom Basketball LeagueCR Anticipated DC Date: 06-20-2019 Planned Disposition: [facility] Facility External Planned Provider: [facility], MEDICARE REHAB BED Discharge Planning Comments: CM RECEIVED MESSAGE FROM [facility], PT'S INSURANCE HAS PROVIDED AUTHORIZATION FOR [facility], THEY WILL ACCEPT TODAY. CM MET WITH PT AND HIS SON IN ROOM TO DISCUSS DISCHARGE PLANNING AND NEEDS. BOTH IN AGREEMENT WITH DISCHARGE TODAY TO [facility]. IMPORTANT MESSAGE FROM MEDICARE PROVIDED AND EXPLAINED. CM FAXED DISCHARGE INFORMATION TO [facility] AT [phone]. NURSE REPORT TO BE CALLED TO [facility] AT [phone]. [facility] TO ARRANGE VAN TRANSPORTATION FOR 1530 HOURS TODAY; PHOTOGRAPHIC PROCESS SCREEN MAKER NURSE NOTIFIED. Yeast Pumper: Barrett Duval DCP- Discharge Planning Updated by [email or web address]: Barrett Duval on 06/20/19 12:[address] Patient Name: SONNY NEGRON Encounter No: [id number] : 1940 Primary Insurance: NOVASYSMCR Anticipated DC Date: Planned Disposition: [facility] Facility External Planned Provider: [facility], MEDICARE REHAB BED Discharge Planning Comments: CM SPOKE TO [facility], , WHO INFORMED CM THAT THEY ARE PENDING AUTHORIZATION FOR SKILLED CARE FROM PT'S INSURANCE COMPANY AND NEED UPDATE; CM FAXED REFERRAL UPDATE TO [facility] AT [phone]. ORDER FOR OCCUPATIONAL THERAPY EVALUATION REQUESTED. PT HAS MANAGED MEDICARE AND REQUIRES OT EVALUATION FOR INSURANCE AUTHORIZATION REQUEST.. [facility] WILL NEED OCCUPATIONAL THERAPY EVALUATION FAXED TO [facility] FOR INSURANCE AUTHORIZATION FOR SKILLED / REHAB SERVICES. CM WAITING INSURANCE AUTHORIZATION FOR REHAB SERVICES AT [facility] WHO PLANS TO ACCEPT PT AT DISCHARGE. Yeast Pumper: Barrett Duval DCP- Discharge Planning Updated by [email or web address]: Barrett Duval on 06/16/19 6:[address] Patient Name: SONNY NEGRON Admission Status: ER Accout number: [id number] Admission Date: 06-14-2019 : 1940 Admission Diagnosis: Attending: AUDRA LOPES Current LOS: 2 Anticipated DC Date: Planned Disposition: [facility] Facility Primary Insurance: [employer] PLANNED EXTERNAL PROVIDER[facility] Discharge Planning Comments: CM SPOKE TO [facility] ON 06-15-19, PT WANTS TO GO TO [facility] IN SKILLED BED AT DISCHARGE, [facility] WILL ACCEPT. CM OBTAINED CHOICE LETTER FROM PT. CM PROVIDED [facility] WITH REFERRAL FOR PLACEMENT. ON 05-16-19, CM MET WITH PT IN ROOM TO DISCUSS DISCHARGE PLANNING AND NEEDS. PT REPORTS HE WAS LIVING AT HOME AND HIS SON WAS WITH HIM. PT REPORTS BEING VERY WEAK AND HIS SON HAS TO GO HOME AND HAS A LIFE AND JOB. PT WANTS PLACEMENT AT [facility]. IMPORTANT MESSAGE FROM MEDICARE PROVIDED AND EXPLAINED. PT IS AWARE THAT [facility] HIS ACCEPTING AT HOSPITAL DISCHARGE. FOR DISCHARGE, FAX DISCHARGE INFORMATION TO [facility] AT [phone], NURSE REPORT TO BE CALLED TO [facility] AT [phone]. [facility] TO ARRANGE VAN TRANSPORTATION. Yeast Pumper: Barrett Duval DCPIA - Discharge Planning Initial Assessment Updated by [id number]: Barrett Duval on 06/16/19 7:10 pm * Is the patient Alert and Oriented? Yes * How many steps to enter\exit or inside your home? NONE * PCP DR. RIZVI * Pharmacy [facility] * Preadmission Environment Home with Family * ADLs Independent * Equipment Nebulizer Walker * Other Equipment [employer] * List name and contact numbers for known caregivers / representatives who currently or will assist patient after discharge: LEONEL NEGRON, SON, * Verbal permission to speak to the caregivers and representatives has been obtained from the patient. N/A * Community resources currently utilized Home Health * Please name any agencies selected above. [facility] * Additional services required to return to the preadmission environment? Yes * Can the patient safely return to the preadmission environment? Yes * Has this patient been hospitalized within the prior 30 days at any hospital? Yes Coverage Notice Reviewer: [id number] Duval Notice Issued Date-Time: 06/16/2019 9:45 Notice Type: IM Discharge Notice Notice Delivered To: Patient Relationship to Patient: Personal Counselor Name: Delivery Method: HAND - Hand Delivered Rachelle Days: Prior Verbal Notification: Recipient Understood Notice: Yes Recipient Signature: Yes Med Rec Note Co-signed by Attending: Coverage Notice Comment: Reviewer: ANTHONY Duval Notice Issued Date-Time: 06/15/2019 14:35 Notice Type: Patient Choice Letter Notice Delivered To: Patient Relationship to Patient: Personal Counselor Name: Delivery Method: HAND - Hand Delivered Rachelle Days: Prior Verbal Notification: Recipient Understood Notice: Yes Recipient Signature: Yes Med Rec Note Co-signed by Attending: Coverage Notice Comment: LH Reviewer: ANTHONY Duval Notice Issued Date-Time: 06/20/2019 14:30 Notice Type: IM Discharge Notice Notice Delivered To: Patient Relationship to Patient: Personal Counselor Name: Delivery Method: HAND - Hand Delivered Rachelle Days: Prior Verbal Notification: Recipient Understood Notice: Yes Recipient Signature: Yes Med Rec Note Co-signed by Attending: Coverage Notice Comment: Last DP export: 06/20/19 1:45 p Patient Name: SONNY NEGRON Page [phone] Electronically Signed by [facility] CIT[facility]jay on 06/20/19 at 1453 All edits/amendments must be made on the electronic document DICTATION DATE: 06/20/191451 LOG DECKMAN: ELICEO 06/20/191451 RPT#: [id number] DC DATE: STATUS: ADM IN [facility] [address] [place] [address] END OF REPORT
--- NOTE | 2019-06-20 15:40 | NUR ---
REPORT CALLED TO KIMBER ALDANA
--- NOTE | 2019-06-20 16:00 | NUR ---
DC TO [facility] PER [facility]
== END 2019-06-20 16:00 | DRG 189 ==
LOC: D.ER 10:58 → D.M2 14:30
PROVIDERS: Family Medicine; Internal Medicine Nephrology; ADMIT Family Medicine; ATTEND Family Medicine
DX: J96.21 Acute and chronic respiratory failure with hypoxia (principal); J98.11 Atelectasis; J96.22 Acute and chronic respiratory failure with hypercapnia; I25.10 Atherosclerotic heart disease of native coronary artery without angina pectoris; D64.9 Anemia, unspecified; J43.9 Emphysema, unspecified; I10 Essential (primary) hypertension; E78.00 Pure hypercholesterolemia, unspecified; G62.9 Polyneuropathy, unspecified; I48.91 Unspecified atrial fibrillation; Z87.891 Personal history of nicotine dependence

== ENCOUNTER 2019-06-30 05:52 | Inpatient (IN) | payer OTHER ==
[2019-06-30] VITALS (8 sets, daily range): BP systolic 98–183; BP diastolic 45–84; BMI 19.0
[~2019-06-30] VITALS: Ht 172.7 cm; Wt 56.7 kg
--- NOTE | ~2019-06-30 | CN ---
PATIENT NAME:SONNY NEGRON MEDICAL RECORD: [id number] : 38 LOCATION:D.MS Alexandra2208 ADMIT DATE: 06/30/19 ACCOUNT: [id number] CONSULTING PHYSICIAN: LEVON COSTA MD REFERRING PHYSICIAN: MI MODI MD DATE OF CONSULTATION: 07/03/2019 HISTORY OF PRESENT ILLNESS: Mr. Negron is an 79-year-old male admitted 2 or 3 days ago with cough, fever, shortness of breath. He is on nasal cannula oxygen and he is on Plavix and aspirin. According to his nurse, he has been coughing up some bloody sputum yesterday, he had a packing in the left side of the nose, packings is about 1-2 cm maybe, about 8 centimeter along packings so it was just barely in there, but he said it stopped any bleeding. He got a low platelet count about 128,000. On physical exam, he is awake, alert. He has got the nasal oxygen in his mouth. Packing hanging out the left side of his nose. No distress, no bleeding. A look in the right side of his nose completely clear, no blood, no crust. No drainage. Wide open and looks good. ORAL CAVITY AND OROPHARYNX: Dry, but no lesions, no mass, no blood in the posterior pharynx. I removed the packing from the left side of the nose, this was not appropriate. It was hanging out in the way and was just going to move around. I removed that and looked his nose, it is open and looks good. He has got a vein on the left caudal septum, this is obviously the source of the problem, a little bit of ooze towards the inferior portion of that, still several millimeters above the nasal sill on that left side. The rest of the nasal mucosa all looks good. There is a little bit of moisture there, but it has been packed. I placed a large cotton ball in the left side of the nose with some Surgilube to keep the area moist and packed that in there. It was not bleeding any but that is going to keep it moist, so it can heal up. I talked to the nurse about what to do for bleeding with a new large cotton ball with some Afrin on it should take care of the bleeding, but I am not going to give him any Afrin. He can use Jasper gel spray or some Surgilube if there is any dryness in the anterior nose, avoid Vaseline because of the oxygen that he is on and he is going to leave the cotton ball in there and therefore 24-48 hours if it will stay and then replace it if need for bleeding. TRANSINT:[id number] Voice Confirmation ID: [id number] DOCUMENT ID: [id number] LEVON COSTA MD CC: [id number] DICTATION DATE: 07/03/19 1043 BILLING COORDINATOR: 07/03/192027 ADM IN [facility] [id number] [place] [address]
[~2019-06-30 05:52] MED LIST: BAYER CHEWABLE81 MG; BAYER CHEWABLE81 MG PO; COREG6.25 MG PO; GABAPENTIN100 MG PO; HYDROCODON-ACE1 EAC7 PO; IPRAT-ALBUT 0.5-3 ML UPD; LEVOFLOXACIN500 MG PO; MUCINEX600 MG PO; NEURONTIN800 MG PO; OMNICEF300 MG PO; PLAVIX75 MG PO; PRAVASTATIN SOD10 MG PO; PREDNISONE20 MG PO; PROTONIX40 MG PO; PULMICORT0.25 MG/1 INH; VALIUM5 MG PO; ZITHROMAX250 MG PO
[2019-06-30 06:55] LABS: CALC OSMOLALITY 279 mosm/kg (275-300); CALCIUM 8.5 mg/dL (8.5-10.1); CARBON DIOXIDE 34.4 mmol/L (21.0-32.0); CHLORIDE - SERUM 100 mmol/L (98-107); CREATININE - SERUM 0.7 mg/dL (0.6-1.3); GLUCOSE 193 mg/dL (74-106); POTASSIUM - SERUM 4.4 mmol/L (3.5-5.1); SODIUM 137 mmol/L (136-145); UREA NITROGEN 15 mg/dL (7-18); eGFR NON AFRICAN AMERICAN > 90 mL/min (90-120)
--- NOTE | 2019-06-30 07:05 | NUR ---
ASSUMED CARE OF PT. RESTING UPRIGHT, A/A/OX3. "I FEEL BETTER". DENIES PAIN OR DISCOMFORT
[2019-06-30 07:17] LABS: ALKALINE PHOSPHATASE 89 U/L (30-120); ALT (SGPT) 18 U/L (10-68); BILIRUBIN - TOTAL 0.84 mg/dL (0.2-1.3); CKMB 3.1 U/L (0.0-3.6); CREATINE KINASE 24 UL (21-232); PRO BNP 1623 pg/mL (0-450)
[2019-06-30 07:21] LABS: TROPONIN-I 0.067 ng/mL (0.000-0.060)
[2019-06-30 07:22] LABS: BASOPHILS 0 % (0-2); EOSINOPHILS 0 % (0-7); HEMATOCRIT 36.7 % (42.0-54.0); HEMOGLOBIN 12.1 g/dL (13.5-17.5); IMMATURE GRANULOCYTES 0.5 % (0-5); LYMPHOCYTES 3.1 % (15-50); MCH 30.1 pg (26.0-34.0); MCV 91.3 fL (80.0-100.0); MEAN PLATELET VOLUME 9.9 fL (7.4-10.4); MONOCYTES 6.7 % (2-11); NEUTROPHILS 89.7 % (40-80); PLATELET COUNT 181 10x3/uL (130-400); RBC 4.02 10x6/uL (4.20-6.10); RDW 12.8 % (11.5-14.5); WBC 23.3 10x3/uL (4.8-10.8)
--- NOTE | 2019-06-30 07:22 | NUR ---
CRITICAL LAB: TROPONIN 0.067
--- NOTE | 2019-06-30 07:35 | NUR ---
BC'S X 2 DRAWN THEN ABXS INITITATED
[2019-06-30 07:43] LABS: APTT 25.3 SECONDS (22.8-39.4); INR 1.19 (0.85-1.17)
--- NOTE | 2019-06-30 08:20 | NUR ---
REPORT CALLED TO ZBIGNIEW AYALA
--- NOTE | 2019-06-30 08:35 | NUR ---
TRANSPORTED TO ROOM #2208, CONDITION STABLE
--- NOTE | 2019-06-30 09:00 | NUR ---
PATIENT RECEIVED TO ROOM 2208 VIA STRETCHER FROM ER. A/O X3. C/O SOB AT THIS TIME. SATS IN THE HIGH 90'S ON 10L. WILL MONITOR. SKIN IS INTACT WITHOUT REDNESS. DENIES NEEDS.
--- NOTE | 2019-06-30 09:30 | NUR ---
ASSISTED TO STAND AT BEDSIDE. VOIDED 300CC CLEAR YELLOW URINE IN URINAL. REPOSITIONED IN BED FOR COMFORT.
--- NOTE | 2019-06-30 10:35 | NUR ---
GOWN CHANGED AND LINENS PER STAFF. PATIENT ASSISTED WITHOUT C/O. SAT AT 97% ON 10L. PATIENT REPORTS BREATHING FEELS BETTER AT THIS TIME.
[2019-06-30 13:07] LABS: CKMB 2.9 U/L (0.0-3.6); CREATINE KINASE 23 UL (21-232); TROPONIN-I 0.099 ng/mL (0.000-0.060)
--- NOTE | 2019-06-30 19:15 | NUR ---
ALERT AND ORIENTED. SOFT SPOKEN AND HARD OF HEARING BUT ANSWERS QUESTIONS APPROPRIATELY. PATIENT WEARING 5L HFC. HAS A LEFT WRIST IV THAT IS SALINE LOCKED. RIGHT FOREARM INFUSING LR @ 100. ASSISTED PATIENT ON WITH BED MENDEZ. PATIENT HAD LARGE BM. NO BREAKDOWN NOTED TO BUTTOCKS AT THIS TIME. WEARING TELE. DENIES NEEDS AT THIS TIME. BED ALARM ON. CALL LIGHT IN REACH. CPOC.
[2019-06-30 19:21] LABS: CKMB 2.8 U/L (0.0-3.6); CREATINE KINASE 19 UL (21-232); TROPONIN-I 0.055 ng/mL (0.000-0.060)
[2019-07-01] VITALS (7 sets, daily range): BP systolic 103–135; BP diastolic 52–81
--- NOTE | 2019-07-01 00:47 | NUR ---
LEFT WRIST IV DC'D. NO INFILTRATION OR SWELLING NOTED. CPOC.
[2019-07-01 01:48] LABS: CKMB 2.3 U/L (0.0-3.6); CREATINE KINASE 20 UL (21-232); TROPONIN-I 0.037 ng/mL (0.000-0.060)
--- NOTE | 2019-07-01 03:18 | NUR ---
I have reviewed this patient and I concur with the Shift Assessment completed by the Licensed Practical Nurse today this shift.
[2019-07-01 05:04] LABS: HEMATOCRIT 31.7 % (42.0-54.0); HEMOGLOBIN 10.7 g/dL (13.5-17.5); MCH 30.4 pg (26.0-34.0); MCHC 33.8 g/dL (31.0-37.0); MCV 90.1 fL (80.0-100.0); MEAN PLATELET VOLUME 9.6 fL (7.4-10.4); PLATELET COUNT 141 10x3/uL (130-400); RBC 3.52 10x6/uL (4.20-6.10); RDW 12.9 % (11.5-14.5); WBC 20.1 10x3/uL (4.8-10.8)
[2019-07-01 05:13] LABS: ALBUMIN 2.6 g/dL (3.4-5.0); ALKALINE PHOSPHATASE 59 U/L (30-120); ALT (SGPT) 15 U/L (10-68); BILIRUBIN - TOTAL 1.64 mg/dL (0.2-1.3); CALCIUM 8.7 mg/dL (8.5-10.1); CARBON DIOXIDE 34.7 mmol/L (21.0-32.0); CHLORIDE - SERUM 100 mmol/L (98-107); CREATININE - SERUM 0.7 mg/dL (0.6-1.3); MAGNESIUM - SERUM 1.5 mg/dL (1.8-2.4); PHOSPHOROUS 2.9 mg/dL (2.5-4.9); PROTEIN - SERUM 6.5 g/dL (6.4-8.2); SODIUM 137 mmol/L (136-145); UREA NITROGEN 12 mg/dL (7-18); eGFR NON AFRICAN AMERICAN > 90 mL/min (90-120)
[2019-07-01 05:14] LABS: CALC OSMOLALITY 273 mosm/kg (275-300); GLUCOSE 100 mg/dL (74-106); POTASSIUM - SERUM 3.6 mmol/L (3.5-5.1)
[2019-07-01 05:45] LABS: LYMPHOCYTES 8 % (15-50); MONOCYTES 5 % (2-11); NEUTROPHILS 87 % (40-80); PLATELET ESTIMATE NORMAL
--- NOTE | 2019-07-01 07:30 | NUR ---
FROM THE ER THIS MORNING. O2 AT 3 LITERS NC. DENIES ANY PAIN. STATES "I AM BREATHING BETTER". BP LITTLE LOW, 'S NURSE NOTIFIED.
--- NOTE | 2019-07-01 08:43 | NUR ---
ON 6 L HIGH FLOW, NO SOB, UP AND DOWN TO THE BSC, 2 BM'S THIS MORNING.
--- NOTE | 2019-07-01 19:00 | NUR ---
PATIENT ALERT AND ORIENTED. ANSWERS QUESTIONS APPROPRIATELY. PATIENT IS HARD OF HEARING. SPEAKS SOFTLY. CURRENTLY WEARING 5L NC. PATIENT HAS RIGHT FOREARM INFUSING NS @ 50. PATIENT HAS WET COUGH, HAS YONKER AT HAND TO SUCTION SELF. LUNG SOUNDS WITH INSPIRATORY AND EXPIRATORY WHEEZES. PATIENT GETS DYNPNIC UPON EXERTION, EVEN TO BSC. PATIENT HAS TELE. 118 SINUS TACH AT THIS TIME. BED ALARM ON. DENIES NEEDS AT THIS TIME. HAS CALL LIGHT IN REACH. CPOC.
--- NOTE | 2019-07-01 22:51 | NUR ---
ASSISTED TO BEDSIDE COMMODE. LINEN CHANGE PROVIDED. DENIES FURTHER NEEDS. CPOC.
--- NOTE | 2019-07-01 23:00 | NUR ---
I have reviewed this patient and I concur with the Shift Assessment completed by the Licensed Practical Nurse today this shift.
[2019-07-02] VITALS: BP 122/61
--- NOTE | 2019-07-02 00:14 | NUR ---
ASSISTED PATIENT TO BEDSIDE COMMODE.
[2019-07-02 04:00] VITALS: BP 128/63
[2019-07-02 06:40] LABS: BASOPHILS 0.1 % (0-2); EOSINOPHILS 0 % (0-7); HEMATOCRIT 32.1 % (42.0-54.0); HEMOGLOBIN 10.7 g/dL (13.5-17.5); IMMATURE GRANULOCYTES 0.4 % (0-5); LYMPHOCYTES 10.6 % (15-50); MCH 30.4 pg (26.0-34.0); MCHC 33.3 g/dL (31.0-37.0); MCV 91.2 fL (80.0-100.0); MEAN PLATELET VOLUME 9.7 fL (7.4-10.4); NEUTROPHILS 79.9 % (40-80); PLATELET COUNT 142 10x3/uL (130-400); RBC 3.52 10x6/uL (4.20-6.10)
[2019-07-02 06:49] LABS: WBC 12.2 10x3/uL (4.8-10.8)
[2019-07-02 07:18] LABS: ALBUMIN 2.5 g/dL (3.4-5.0); ALKALINE PHOSPHATASE 60 U/L (30-120); ALT (SGPT) 15 U/L (10-68); BILIRUBIN - TOTAL 1.98 mg/dL (0.2-1.3); CALC OSMOLALITY 265 mosm/kg (275-300); CALCIUM 8.4 mg/dL (8.5-10.1); CHLORIDE - SERUM 93 mmol/L (98-107); CREATININE - SERUM 0.7 mg/dL (0.6-1.3); GLUCOSE 115 mg/dL (74-106); MAGNESIUM - SERUM 1.5 mg/dL (1.8-2.4); POTASSIUM - SERUM 3.1 mmol/L (3.5-5.1); PROTEIN - SERUM 6.6 g/dL (6.4-8.2); SODIUM 132 mmol/L (136-145); UREA NITROGEN 13 mg/dL (7-18); eGFR NON AFRICAN AMERICAN > 90 mL/min (90-120)
--- NOTE | 2019-07-02 08:06 | NUR ---
LESS SOB THIS MORNING, COUGHING UP STUFF USING THE SUCTION TO GET IT OUT OF HIS MOUTH. 4.5 L HIGH FLOW, DENIES ANY PAIN.
[2019-07-02 08:38] VITALS: BP 129/58
[2019-07-02 12:33] VITALS: BP 122/70
[2019-07-02 15:36] LABS: INR 1.3 (0.85-1.17); PROTIME 16.1 SECONDS (11.6-15.0)
[2019-07-02 17:07] VITALS: BP 125/65
--- NOTE | 2019-07-02 17:48 | NUR ---
HE WAS BLOWING HIS NOSE AND IT WAS BLEEDING. HE COUGHED UP SOME BLOOD. DR'S AWARE, HE HELD PRESSURE TO HIS NOSE AND IT STOPPED BLEEDING AFTER ABOUT 30 MINUTES AFTER BLOWING HIS NOSE A FEW TIMES. LABS DRAWN AND DR. QUINONEZ ASSESSED THE PATIENT AND ORDERED SOME NOSE SPRAY.
[2019-07-02 20:00] VITALS: BP 135/74
--- NOTE | 2019-07-02 22:30 | NUR ---
ANSWERED PATIENT CALL LIGHT. PATIENT COUGHED UP LARGE, STRINGY BLOOD CLOT. SHOWED TO CHARGE NURSE. VITALS STABLE. PATIENT STATES HE FEELS BETTER AGTER COUGHING UP. CPOC.
[2019-07-03] VITALS: BP 137/69
--- NOTE | 2019-07-03 01:49 | NUR ---
I have reviewed this patient and I concur with the Shift Assessment completed by the Licensed Practical Nurse today this shift.
--- NOTE | 2019-07-03 01:56 | NUR ---
PATIENT NOW ATTEMPTING TO USE URINAL RATHER THAN BEDSIDE COMMODE. PLACED NEW URINAL IN ROOM IN HOPES TO OBTAIN CLEAN CATCH SAMPLE FOR URINE REFLEX.
[2019-07-03 03:31] LABS: BILIRUBIN NEGATIVE (NEGATIVE); GLUCOSE NEGATIVE (NEGATIVE); KETONE SMALL mg/dL (NEGATIVE); NITRITE NEGATIVE (NEGATIVE); UROBILINOGEN NORMAL (NORMAL)
[2019-07-03 03:32] LABS: BACTERIA FEW /hpf (NEGATIVE); EPITHELIAL CELLS 0-5 /hpf (0-5); RED CELLS - URINE 0-5 /hpf (0-5); WHITE CELLS - URINE 0-5 /hpf (NEGATIVE)
[2019-07-03 04:00] VITALS: BP 149/74
[2019-07-03 04:46] LABS: BASOPHILS 0.1 % (0-2); EOSINOPHILS 0.1 % (0-7); HEMATOCRIT 28.8 % (42.0-54.0); HEMOGLOBIN 9.6 g/dL (13.5-17.5); IMMATURE GRANULOCYTES 0.4 % (0-5); LYMPHOCYTES 17.6 % (15-50); MCH 29.6 pg (26.0-34.0); MCHC 33.3 g/dL (31.0-37.0); MEAN PLATELET VOLUME 9.7 fL (7.4-10.4); MONOCYTES 8.2 % (2-11); NEUTROPHILS 73.6 % (40-80); PLATELET COUNT 128 10x3/uL (130-400); RBC 3.24 10x6/uL (4.20-6.10); RDW 12.6 % (11.5-14.5)
[2019-07-03 04:58] LABS: MCV 88.9 fL (80.0-100.0); WBC 7.5 10x3/uL (4.8-10.8)
[2019-07-03 05:20] LABS: ALBUMIN 2.2 g/dL (3.4-5.0); ALKALINE PHOSPHATASE 53 U/L (30-120); ALT (SGPT) 16 U/L (10-68); BILIRUBIN - TOTAL 1.63 mg/dL (0.2-1.3); CALC OSMOLALITY 272 mosm/kg (275-300); CALCIUM 7.9 mg/dL (8.5-10.1); CARBON DIOXIDE 31.8 mmol/L (21.0-32.0); CHLORIDE - SERUM 99 mmol/L (98-107); CREATININE - SERUM 0.6 mg/dL (0.6-1.3); GLUCOSE 146 mg/dL (74-106); MAGNESIUM - SERUM 1.5 mg/dL (1.8-2.4); POTASSIUM - SERUM 3.6 mmol/L (3.5-5.1); SODIUM 134 mmol/L (136-145); eGFR NON AFRICAN AMERICAN > 90 mL/min (90-120)
[2019-07-03 05:22] LABS: UREA NITROGEN 17 mg/dL (7-18)
--- NOTE | 2019-07-03 08:03 | NUR ---
HIS NOSE IS BLEEDING AGAIN THIS MORNING. PLACED A TAMPOON IN THE LEFT NARE. O2 OK ON 3 LITERS, DENIES ANY NEW NEEDS.
[2019-07-03 08:56] VITALS: BP 140/76
[2019-07-03 13:24] VITALS: BP 122/74
--- NOTE | 2019-07-03 14:01 | MORECARE ---
CASE MANAGEMENT DISCHARGE SUMMARY PATIENT: SONNY NEGRON UNIT: [id number] ADM DATE: 06/30/19 AGE: 79 : 39 SEX: M ROOM/BED: D.2208 AUTHOR: BERLIN FITZPATRICK PHYSICIAN: REFERRING PHYSICIAN: MI MODI MD DATE OF SERVICE: 07/03/19 Discharge Plan Patient Name: SONNY NEGRON [facility] [facility] 1940 Planned Disposition: Snf Facility Anticipated Discharge Date: Discharge Date: Expected LOS: Initial Reviewer: [id number] Initial Review Date: 06/30/2019 Generated: 07/03/19 3:00 pm Patient Name: SONNY NEGRON Page 85898 at 1401 All edits/amendments must be made on the electronic document DICTATION DATE: 07/03/19 1400 MACHINE TRY OUT SETTER: ELICEO 07/03/19 1400 RPT#: [id number] DC DATE: STATUS: ADM IN [facility] [address] [place] [address] END OF REPORT
--- NOTE | 2019-07-03 14:09 | MORECARE ---
CASE MANAGEMENT DISCHARGE SUMMARY PATIENT: SONNY NEGRON UNIT: [id number] ADM DATE: 06/30/19 AGE: 79 : 39 SEX: M ROOM/BED: D.2208 AUTHOR: BERLIN FITZPATRICK PHYSICIAN: REFERRING PHYSICIAN: MI MODI MD DATE OF SERVICE: 07/03/19 Discharge Plan Patient Name: SONNY NEGRON Facility: [facility]:[place] : 1940 Planned Disposition: Assisted Facility Anticipated Discharge Date: Discharge Date: Expected LOS: Initial Reviewer: [id number] Initial Review Date: 06/30/2019 Generated: 07/03/19 3:09 pm Comments DCP- Discharge Planning Updated by [email or web address]: Mikki Kevin on 07/03/19 1:[address] Patient Name: SONNY NEGRON Admission Status: ER Accout number: [id number] Admission Date: 06-30-2019 : 1940 Admission Diagnosis:SEPSIS, UNSPECIFIED ORGANISM Attending: MIKE MODI Current LOS: 3 Anticipated DC Date: Planned Disposition: Assisted Facility Primary Insurance: [employer] Discharge Planning Comments: CM met with patient to complete initial dc planning assessment. CM educated patient on the CM role and verbal consent given by patient to complete assessment. Patient was admitted from [facility] from a skilled bed. He plans to return there at discharge. I have contacted [facility] and will send clinicals to start the Auth process again. Patient denied known discharge needs at this time. CM will continue to follow and will assist as needed with dc plans/needs. Microsoft Windows Engineer: Mikki Kevin DCPIA - Discharge Planning Initial Assessment Updated by [email or web address]: Mikki Kevin on 07/03/19 2:01 pm * Is the patient Alert and Oriented? Yes * How many steps to enter\exit or inside your home? none * PCP madhu * Pharmacy [facility] * Preadmission Environment Home with Family * ADLs Independent * Equipment Nebulizer Rolling Walker * List name and contact numbers for known caregivers / representatives who currently or will assist patient after discharge: LEONEL (SON)[phone] * Verbal permission to speak to the caregivers and representatives has been obtained from the patient. N/A * Additional services required to return to the preadmission environment? Yes * Can the patient safely return to the preadmission environment? Yes * Has this patient been hospitalized within the prior 30 days at any hospital? Yes Last DP export: 07/03/19 1:01 pm Patient Name: SONNY NEGRON Page 02877 at 1409 All edits/amendments must be made on the electronic document DICTATION DATE: 07/03/191408 PETROLEUM PRODUCTION ENGINEER: DM 07/03/191408 RPT#: [id number] DC DATE: STATUS: ADM IN [facility] [address] [place] [address] END OF REPORT
--- NOTE | 2019-07-03 14:24 | MORECARE ---
CASE MANAGEMENT DISCHARGE SUMMARY PATIENT: SONNY NEGRON UNIT: [id number] ADM DATE: 06/30/19 AGE: 79 : 39 SEX: M ROOM/BED: D.2208 AUTHOR: BERLIN FITZAPTRICK PHYSICIAN: REFERRING PHYSICIAN: MI MODI MD DATE OF SERVICE: 07/03/19 Discharge Plan Patient Name: SONNY NEGRON Facility: [facility]:[place] : 1940 Planned Disposition: Detention Facility Anticipated Discharge Date: Discharge Date: Expected LOS: Initial Reviewer: [id number] Initial Review Date: 06/30/2019 Generated: 07/03/19 3:24 pm Comments DCP- Discharge Planning Updated by [email or web address]: Mikki Kevin on 07/03/19 1:[address] Patient Name: SONNY NEGRON Admission Status: ER Accout number: [id number] Admission Date: 06-30-2019 : 1940 Admission Diagnosis:SEPSIS, UNSPECIFIED ORGANISM Attending: MIKE MODI Current LOS: 3 Anticipated DC Date: Planned Disposition: Detention Facility Primary Insurance: [employer] Discharge Planning Comments: CM met with patient to complete initial dc planning assessment. CM educated patient on the CM role and verbal consent given by patient to complete assessment. Patient was admitted from [facility] from a skilled bed. He plans to return there at discharge. I have contacted [facility] and will send clinicals to start the Auth process again. Patient denied known discharge needs at this time. CM will continue to follow and will assist as needed with dc plans/needs. Historian Dramatic Arts: Mikki Kevin DCPIA - Discharge Planning Initial Assessment Updated by [email or web address]: Mikki Kevin on 07/03/19 2:01 pm * Is the patient Alert and Oriented? Yes * How many steps to enter\exit or inside your home? none * PCP madhu * Pharmacy [facility] * Preadmission Environment Home with Family * ADLs Independent * Equipment Nebulizer Rolling Walker * List name and contact numbers for known caregivers / representatives who currently or will assist patient after discharge: LEONEL (SON)[phone] * Verbal permission to speak to the caregivers and representatives has been obtained from the patient. N/A * Additional services required to return to the preadmission environment? Yes * Can the patient safely return to the preadmission environment? Yes * Has this patient been hospitalized within the prior 30 days at any hospital? Yes External Providers External Provider: [facility] Next Contact Date: Service Request Date: Service Type: Resolution: Reviewer: Comments: Last DP export: 07/03/19 1:09 pm Patient Name: SONNY NEGRON Page 31438 at 1424 All edits/amendments must be made on the electronic document DICTATION DATE: 07/03/19 142 FORESTRY TREE PRUNER: ELICEO 07/03/19 1424 RPT#: [id number] DC DATE: STATUS: ADM IN [facility] [address] [place] [address] END OF REPORT
--- NOTE | 2019-07-03 15:35 | NUR ---
DR COSTA ROUNDED, PACKED THE LEFT NARE. HE IS NOW UP IN THE CHAIR. NO NOSE BLEED SO FAR.
--- NOTE | 2019-07-03 15:45 | NUR ---
OT NOTE: PT DOING WELL TODAY. APPARENTLY HAD BAD NOSE BLEED THIS AM. PT WANTED TO GET UP OUT OF BED. BED MOB WITH MIN ASSIST; SIMPLE GROOMING TASK INCLUDING SHAVING WITH ELEC RAZOR, WASHING FACE AND HANDS, AND COMBING HAIR WITH SET UP; BED MOB WITH MIN ASSIST; ABLE TO TRANSFER FROM BED TO CHAIR WITH RW AND MIN ASSIST. ALARM PAD PLACED IN CHAIR; NURSING NOTIFIED. BRIANA BRINK, OTR/L [phone]
[2019-07-03 17:28] VITALS: BP 130/59
--- NOTE | 2019-07-03 19:30 | NUR ---
A&O X 4. EXTREMELY EMMONAK. DENIES PAIN/DISCOMFORT. SUCTION AT BEDSIDE, PT ON HONEY THICKENED LIQUIDS, PT TOLERATING WELL, WILL CONTINUE TO MONITOR.
[2019-07-03 20:00] VITALS: BP 114/59
--- NOTE | 2019-07-03 20:10 | NUR ---
OT NOTE: PT COMPLETED EOB SITTING WITH SBA. PT COMPLETED SUPINE TO SIT WITH CGA. PT COMPLETED FACE AND HAND HYGIENE WITH SET UP. PT STATED AT REHAB HE WAS SO CLOSE TO GOING HOME. BARNEY ENCOURAGED PT TO CONTINUE PARTICIPATING WITH THERAPY IN ORDER TO GET STRONGER. [phone] THANK YOU,ECTOR VASQUEZ
[2019-07-04] VITALS: BP 135/65
[2019-07-04 04:00] VITALS: BP 146/61
--- NOTE | 2019-07-04 05:43 | NUR ---
I have reviewed this patient and I concur with the Shift Assessment completed by the Licensed Practical Nurse today this shift.
[2019-07-04 07:21] LABS: BASOPHILS 0 % (0-2); EOSINOPHILS 0 % (0-7); HEMATOCRIT 26.4 % (42.0-54.0); HEMOGLOBIN 8.9 g/dL (13.5-17.5); IMMATURE GRANULOCYTES 0.4 % (0-5); LYMPHOCYTES 23.6 % (15-50); MCH 29.5 pg (26.0-34.0); MCHC 33.7 g/dL (31.0-37.0); MCV 87.4 fL (80.0-100.0); MEAN PLATELET VOLUME 9.6 fL (7.4-10.4); MONOCYTES 10.6 % (2-11); NEUTROPHILS 65.4 % (40-80); PLATELET COUNT 121 10x3/uL (130-400); RBC 3.02 10x6/uL (4.20-6.10); RDW 12.7 % (11.5-14.5)
[2019-07-04 07:24] LABS: WBC 5.5 10x3/uL (4.8-10.8)
[2019-07-04 07:39] LABS: ALBUMIN 2.2 g/dL (3.4-5.0); ALKALINE PHOSPHATASE 54 U/L (30-120); ALT (SGPT) 19 U/L (10-68); BILIRUBIN - TOTAL 1.21 mg/dL (0.2-1.3); CALC OSMOLALITY 273 mosm/kg (275-300); CALCIUM 7.5 mg/dL (8.5-10.1); CARBON DIOXIDE 31.7 mmol/L (21.0-32.0); CHLORIDE - SERUM 97 mmol/L (98-107); CREATININE - SERUM 0.5 mg/dL (0.6-1.3); GLUCOSE 142 mg/dL (74-106); POTASSIUM - SERUM 3.4 mmol/L (3.5-5.1); PROTEIN - SERUM 5.6 g/dL (6.4-8.2); SODIUM 136 mmol/L (136-145); UREA NITROGEN 13 mg/dL (7-18); VANCOMYCIN - TROUGH 14.4 ug/mL (10.0-20.0); eGFR NON AFRICAN AMERICAN > 90 mL/min (90-120)
--- NOTE | 2019-07-04 08:09 | NUR ---
PATIENT RECIEVED FROM PREVIOUS NURSE RESTING IN BED WITH NO DISTRESS. ALERT AND ORIENTED. RESPIRATIONS REGULAR AND NON-LABORED, 02 2.5L HF. CL IN REACH
[2019-07-04 10:07] VITALS: BP 155/68
[2019-07-04 14:39] VITALS: BP 131/65
[2019-07-04 17:25] VITALS: BP 167/73
--- NOTE | 2019-07-04 18:51 | NUR ---
IV RESITED TO LEFT FOREARM 22G X 1 STICK DUE TO RIGHT ARM IV BLEEDING. NO REDNESS OR EDEMA AT DC SITE. PATIENT TOLERATED WELL
--- NOTE | 2019-07-04 19:30 | NUR ---
A&0 X 4. 2.5L O2 IN USE. TOLERATING THICKENED LIQUIDS. DENIES PAIN. NO S/SX OF DISTRESS, WILL CONTINUE TO MONITOR.
[2019-07-04 21:28] VITALS: BP 121/58
[2019-07-05 01:59] VITALS: BP 110/62
[2019-07-05 04:36] LABS: BASOPHILS 0 % (0-2); EOSINOPHILS 0.2 % (0-7); HEMATOCRIT 26.2 % (42.0-54.0); IMMATURE GRANULOCYTES 0.4 % (0-5); LYMPHOCYTES 32.1 % (15-50); MCH 29.9 pg (26.0-34.0); MCHC 34.4 g/dL (31.0-37.0); MEAN PLATELET VOLUME 9.8 fL (7.4-10.4); MONOCYTES 13.3 % (2-11); PLATELET COUNT 121 10x3/uL (130-400); RBC 3.01 10x6/uL (4.20-6.10); RDW 12.7 % (11.5-14.5)
[2019-07-05 04:51] LABS: ALBUMIN 2.2 g/dL (3.4-5.0); ALKALINE PHOSPHATASE 51 U/L (30-120); ALT (SGPT) 16 U/L (10-68); BILIRUBIN - TOTAL 1.09 mg/dL (0.2-1.3); CALC OSMOLALITY 270 mosm/kg (275-300); CALCIUM 7.6 mg/dL (8.5-10.1); CARBON DIOXIDE 31.5 mmol/L (21.0-32.0); CHLORIDE - SERUM 99 mmol/L (98-107); CREATININE - SERUM 0.6 mg/dL (0.6-1.3); GLUCOSE 104 mg/dL (74-106); MAGNESIUM - SERUM 1.6 mg/dL (1.8-2.4); POTASSIUM - SERUM 3.6 mmol/L (3.5-5.1); PROTEIN - SERUM 5.8 g/dL (6.4-8.2); SODIUM 136 mmol/L (136-145); eGFR NON AFRICAN AMERICAN > 90 mL/min (90-120)
[2019-07-05 04:54] LABS: UREA NITROGEN 9 mg/dL (7-18)
--- NOTE | 2019-07-05 05:09 | NUR ---
I have reviewed this patient and I concur with the Shift Assessment completed by the Licensed Practical Nurse today this shift.
[2019-07-05 06:04] VITALS: BP 134/65
[2019-07-05 08:00] VITALS: BP 143/75
--- NOTE | 2019-07-05 08:00 | NUR ---
ASSESSMENT PER FLOW SHEET. FALL PREVENTION IN PLACE WITH BED ALARM.MONITOR FOR NEEDS.
--- NOTE | 2019-07-05 08:14 | NUR ---
STOOL TO LAB ORDERED
[2019-07-05 10:58] VITALS: Ht 172.7 cm; Wt 56.7 kg
--- NOTE | 2019-07-05 11:41 | EC ---
PATIENT:SONNY NEGRON DATE OF SERVICE: 06/30/19 SEX: M MEDICAL RECORD: [id number] DATE OF : 38 LOCATION:D.[facility] AGE OF PATIENT: 79 ADMISSION DATE: 06/30/19 REFERRING PHYSICIAN: INTERPRETING PHYSICIAN: KENDY NGUYEN MD ECHOCARDIOGRAM REPORT ECHO CHARGES 5 ECHO LIMITED Date: 07/04/19 CLINICAL DIAGNOSIS: CAD ECHOCARDIOGRAPHIC MEASUREMENTS (adult normal given) AC root (d.<3.7cm) 0 cm LV Septum d (<1.2 cm> 0 cm Valve Excursion 0 cm LV Septum (systole) 0 cm Left Atria (s.<4.0cm> 0 cm LVPW d(<1.2cm) 0 cm RV (d.<2.3cm) 0 cm LVPW (sytole) 0 cm LV diastole(<5.6CM) 0 cm MV E-F(>70mm/sec) 0 cm LV systole 0 cm LVOT Diameter 0 cm MV exc.(>10mm) cm Est.ejection fraction (50-75%) % DOPPLER: LVIT cm/sec A 0 cm/sec E 0 cm/sec LA 0 cm/sec RVSP 31.4 mmHg LVOT 0 cm/sec AOP1/2T m/s Asc. Ao 0 cm/sec RVOT 0 cm/sec RA 0 cm/sec PA 0 cm/sec AV Gradient Peak 0 mmHg AV Mean 0 mmHg AV Area 0 cm MV Gradient Peak 0 mmHg MV Mean 0 mmHg MV Area 0 cm COMMENTS: Driller And Reamer: Sil FLORESTRACY RANDEE Repairer Pump: 3 Dr. Mccall TAPE# PACS Pericardial Effusion Y DATE OF SERVICE: This is a technically limited study with full study done on 05/28/2019. Gross LVH appears present. LV internal dimensions are normal. Wall motion is normal. EF is greater than or equal to 55%. Aortic valve is tricuspid with good valve excursion via 2D. Left atrium grossly appears normal. Mitral valve appears normal. Trivial MR. Right-sided chambers are grossly normal. Trivial TR. TRANSINT:[id number] Voice Confirmation ID: [id number] DOCUMENT ID: [id number] ECHOCARDIOGRAM REPORT [id number] SONNY NEGRON KENDY NGUYEN MD at 1142 CC: [id number] DICTATION DATE: 07/04/19 1356 TAPEMAN: 07/04/19 1434 ADM IN [facility] [address] [id number]
[2019-07-05 12:00] VITALS: BP 137/69
--- NOTE | 2019-07-05 14:16 | MORECARE ---
CASE MANAGEMENT DISCHARGE SUMMARY PATIENT: SONNY NEGRON UNIT: [id number] ADM DATE: 06/30/19 AGE: 79 : 39 SEX: M ROOM/BED: D.2208 AUTHOR: NANETTE,DOC PHYSICIAN: REFERRING PHYSICIAN: MI MODI MD DATE OF SERVICE: 07/05/19 Discharge Plan Patient Name: SONNY NEGRON Facility: [facility]:[place] : 1940 Planned Disposition: Shelter Facility Anticipated Discharge Date: Discharge Date: Expected LOS: Initial Reviewer: [email or web address] Initial Review Date: 06/30/2019 Generated: 07/05/19 3:15 pm Comments DCP- Discharge Planning Updated by [email or web address]: Mikki Kevin on 07/05/19 1:[address] PATIENT HAS BEEN AUTHORIZED TO GO BACK TO [facility] WHEN HE IS STABLE TO GO BACK DCP- Discharge Planning Updated by [id number]: Mikki Kevin on 07/03/19 1:[address] Patient Name: SONNY NEGRON Admission Status: ER Accout number: [id number] Admission Date: 06-30-2019 : 1940 Admission Diagnosis:SEPSIS, UNSPECIFIED ORGANISM Attending: MIKE MODI Current LOS: 3 Anticipated DC Date: Planned Disposition: Shelter Facility Primary Insurance: [facility] Discharge Planning Comments: CM met with patient to complete initial dc planning assessment. CM educated patient on the CM role and verbal consent given by patient to complete assessment. Patient was admitted from [facility] from a skilled bed. He plans to return there at discharge. I have contacted Gina and will send clinicals to start the Auth process again. Patient denied known discharge needs at this time. CM will continue to follow and will assist as needed with dc plans/needs. Compliance Administrator: Mikki eKvin DCPIA - Discharge Planning Initial Assessment Updated by [email or web address]: Mikki Kevin on 07/03/19 2:01 pm * Is the patient Alert and Oriented? Yes * How many steps to enter\exit or inside your home? none * PCP madhu * Pharmacy [facility] * Preadmission Environment Home with Family * ADLs Independent * Equipment Nebulizer Rolling Walker * List name and contact numbers for known caregivers / representatives who currently or will assist patient after discharge: LEONEL (SON)[phone] * Verbal permission to speak to the caregivers and representatives has been obtained from the patient. N/A * Additional services required to return to the preadmission environment? Yes * Can the patient safely return to the preadmission environment? Yes * Has this patient been hospitalized within the prior 30 days at any hospital? Yes Last DP export: 07/03/19 1:25 pm Patient Name: SONNY NEGRON Page 40756 at 1416 All edits/amendments must be made on the electronic document DICTATION DATE: 07/05/191414 PRODUCT EVANGELIST: ELICEO 07/05/191414 RPT#: [id number] DC DATE: STATUS: ADM IN [facility] [address] [place] [address] END OF REPORT
--- NOTE | 2019-07-05 15:10 | NUR ---
HIGH RISK OF IMPAIRED SKIN INTEGRITY -TURN/REPOSITION Q 2 HOURS (REPOSITION HOURLY IF UP IN CHAIR) -FLOAT HEELS -PERSONAL CARE DAILY AND NEEDED. APPLY CALMOSEPTINE IF REDNESS IS NOTED DUE TO INCONTINENCE/MOISTURE -DOCUMENT SKIN ASSESSMENT Q SHIFT -CONSULT WOUND CARE IF PRESSURE INJURIES ARE PRESENT AND/OR FOR NON-BLANCHABLE REDNESS OVER BONY PROMINENCES
[2019-07-05 17:09] VITALS: BP 133/64
--- NOTE | 2019-07-05 17:42 | NUR ---
OT NOTE: BED MOB WITH MIN ASSIST; TRANSFER TO BS COMMODE WITH MIN ASSIST AND USE OF WALKER. PT DID NOT WANT TO USE REGULAR COMMODE FOR SOME REASON. REQUIRED ASSIST WITH TOILET HYGIENE; AMB INTO HALLWAY WITH WALKER, IV, AND 02 X 200+ FT TO IMPROVE FUNCTIONAL ENDURANCE. ABLE TO WASH FACE ADN HANDS WITH SET UP; FUNCTIONAL TRANSFERS WITH MIN ASSIST WITH USE OF WALKER BRIANA BRINK,OTR/L [phone]
--- NOTE | 2019-07-05 19:15 | NUR ---
A&O X 4, HARD OF HEARING. DENIES PAIN/DISCOMFORT. 2.5L O2 IN USE. SCD AND BED ALARM IN USE. WILL CONTINUE TO MONITOR.
--- NOTE | 2019-07-05 19:23 | NUR ---
OT NOTE: (DOS 07/04/2019) PT COMPLETED SUPINE TO SIT WITH CGA/MIN A. PT COMPLETED EOB SITTING WITH SBA. PT COMPLETED FACE AND HAND HYGIENE AT EOB WITH SBA. PT COMPLETED SIT TO SUPINE WITH SBA. PT ABLE TO BRING LE UP AND OVER BED WITH I. [phone] THANK YOU,ECTOR VASQUEZ
[2019-07-05 21:09] VITALS: BP 123/59
[2019-07-06 01:29] VITALS: BP 128/66
[2019-07-06 05:53] VITALS: BP 90/60
[2019-07-06 06:21] LABS: BASOPHILS 0.2 % (0-2); EOSINOPHILS 0.2 % (0-7); HEMATOCRIT 27.9 % (42.0-54.0); HEMOGLOBIN 9.5 g/dL (13.5-17.5); IMMATURE GRANULOCYTES 0.3 % (0-5); LYMPHOCYTES 27.6 % (15-50); MCH 29.1 pg (26.0-34.0); MCHC 34.1 g/dL (31.0-37.0); MCV 85.6 fL (80.0-100.0); MEAN PLATELET VOLUME 9.8 fL (7.4-10.4); MONOCYTES 11.8 % (2-11); NEUTROPHILS 59.9 % (40-80); PLATELET COUNT 143 10x3/uL (130-400); RBC 3.26 10x6/uL (4.20-6.10); RDW 12.5 % (11.5-14.5); WBC 6.1 10x3/uL (4.8-10.8)
[2019-07-06 06:48] LABS: ALBUMIN 2.3 g/dL (3.4-5.0); ALKALINE PHOSPHATASE 55 U/L (30-120); ALT (SGPT) 16 U/L (10-68); BILIRUBIN - TOTAL 0.99 mg/dL (0.2-1.3); CALC OSMOLALITY 269 mosm/kg (275-300); CALCIUM 7.8 mg/dL (8.5-10.1); CARBON DIOXIDE 30.9 mmol/L (21.0-32.0); CHLORIDE - SERUM 98 mmol/L (98-107); CREATININE - SERUM 0.7 mg/dL (0.6-1.3); GLUCOSE 135 mg/dL (74-106); POTASSIUM - SERUM 3.5 mmol/L (3.5-5.1); PROTEIN - SERUM 5.8 g/dL (6.4-8.2); SODIUM 135 mmol/L (136-145); UREA NITROGEN 8 mg/dL (7-18); eGFR NON AFRICAN AMERICAN > 90 mL/min (90-120)
[2019-07-06 08:30] VITALS: BP 146/69
[2019-07-06 10:53] LABS: MAGNESIUM - SERUM 1.6 mg/dL (1.8-2.4); POTASSIUM - SERUM 3.8 mmol/L (3.5-5.1)
[2019-07-06] MEDS ORDERED: CALMOSEPTINE OI71 GM TOPICAL (11:21)
[2019-07-06] MEDS ORDERED: LOMOTIL 2.5-0.1 EAC1 PO (11:22)
[2019-07-06] MEDS ORDERED: FLORAJEN3 CAPS460 MG PO (11:22)
[2019-07-06] MEDS ORDERED: FLAGYL500 MG PO (11:23)
--- NOTE | 2019-07-06 11:39 | MORECARE ---
CASE MANAGEMENT DISCHARGE SUMMARY PATIENT: SONNY NEGRON UNIT: [id number] ADM DATE: 06/30/19 AGE: 79 : 39 SEX: M ROOM/BED: D.2208 AUTHOR: BERLIN FITZPATRICK PHYSICIAN: REFERRING PHYSICIAN: MI MODI MD DATE OF SERVICE: 07/06/19 Discharge Plan Patient Name: SONNY NEGRON Facility: [facility]:[place] : 1940 Planned Disposition: Penitentiary Facility Anticipated Discharge Date: Discharge Date: Expected LOS: Initial Reviewer: [email or web address] Initial Review Date: 06/30/2019 Generated: 07/06/19 12:39 pm Comments DCP- Discharge Planning Updated by [email or web address]: Mikki Kevin on 07/06/19 10:[address] [facility] IMM served and explained. [facility] will provide transportation. He will go to a skilled bed DCP- Discharge Planning Updated by [id number]: Mikki Kevin on 07/05/19 1:[address] PATIENT HAS BEEN AUTHORIZED TO [facility] WHEN HE IS STABLE TO GO BACK DCP- Discharge Planning Updated by [id number]: Mikki Kevin on 07/03/19 1:[address] Patient Name: SONNY NEGRON Admission Status: ER Accout number: [id number] Admission Date: 06-30-2019 : 1940 Admission Diagnosis:SEPSIS, UNSPECIFIED ORGANISM Attending: MIKE MODI Current LOS: 3 Anticipated DC Date: Planned Disposition: Penitentiary Facility [facility] Discharge Planning Comments: CM met with patient to complete initial dc planning assessment. CM educated patient on the CM role and verbal consent given by patient to complete assessment. Patient was admitted from [facility] from a skilled bed. He plans to return there at discharge. I have contacted Gina and will send clinicals to start the Auth process again. Patient denied known discharge needs at this time. CM will continue to follow and will assist as needed with dc plans/needs. Statistical Machine Servicer: Mikki Kevin DCPIA - Discharge Planning Initial Assessment Updated by [id number]: Mikki Kevin on 07/03/19 2:01 pm * Is the patient Alert and Oriented? Yes * How many steps to enter\exit or inside your home? none * PCP madhu * Pharmacy [facility] * Preadmission Environment Home with Family * ADLs Independent * Equipment Nebulizer Rolling Walker * List name and contact numbers for known caregivers / representatives who currently or will assist patient after discharge: LEONEL (SON)[phone] * Verbal permission to speak to the caregivers and representatives has been obtained from the patient. N/A * Additional services required to return to the preadmission environment? Yes * Can the patient safely return to the preadmission environment? Yes * Has this patient been hospitalized within the prior 30 days at any hospital? Yes Coverage Notice Reviewer: [email or web address] Darin Kevin Notice Issued Date-Time: 07/06/2019 8:15 Notice Type: Patient Choice Letter Notice Delivered To: Patient Relationship to Patient: District Supervisor Name: Delivery Method: HAND - Hand Delivered Rachelle Days: Prior Verbal Notification: Recipient Understood Notice: Yes Recipient Signature: Yes Med Rec Note Co-signed by Attending: Coverage Notice Comment: [facility] Reviewer: [email or web address] Darin Kevin Notice Issued Date-Time: 07/06/2019 8:15 Notice Type: IM Discharge Notice Notice Delivered To: Patient Relationship to Patient: District Supervisor Name: Delivery Method: HAND - Hand Delivered Rachelle Days: Prior Verbal Notification: Recipient Understood Notice: Yes Recipient Signature: Yes Med Rec Note Co-signed by Attending: Coverage Notice Comment: Last DP export: 07/05/19 1:16 p Patient Name: SONNY NEGRON Page [id number] at 1139 All edits/amendments must be made on the electronic document DICTATION DATE: 07/06/19 1139 SUPERVISOR COREMAKER: ELICEO 07/06/19 1139 RPT#: [id number] DC DATE: STATUS: ADM IN [facility] [address] [place] [address] END OF REPORT
[2019-07-06 13:52] VITALS: BP 147/67
--- NOTE | 2019-07-06 14:06 | NUR ---
RIDE HERE FOR TRANSPORT TO [facility]. IV DCDWITH CATH TIP INTACT. DISCHARGE INSTRUCTIONS,STATES UNDERSTANDING.
--- NOTE | 2019-07-06 14:09 | NUR ---
[facility],SPOKE WITH RAYRAY WARREN
--- NOTE | 2019-07-06 17:13 | NUR ---
OT NOTE: PT COMPLETED ADL MOB WITH RW REQUIRED CGA. PT COMPLETED SUPINE TO SIT WITH CGA. PT COMPLETED BUE AROM EXS AT EOB. PT DID WELL TODAY. [phone] THANK YOU,ECTOR VASQUEZ
--- NOTE | 2019-07-08 09:48 | MORECARE ---
CASE MANAGEMENT DISCHARGE SUMMARY PATIENT: SONNY NEGRON UNIT: [id number] ADM DATE: 06/30/19 AGE: 79 : 39 SEX: M ROOM/BED: D.2208 AUTHOR: BERLIN FITZPATRICK PHYSICIAN: REFERRING PHYSICIAN: MI MODI MD DATE OF SERVICE: 07/08/19 Discharge Plan Patient Name: SONNY NEGRON Facility: [facility]:[place] : 1940 Planned Disposition: Long Term Facility Anticipated Discharge Date: Discharge Date: 07/06/2019 Expected LOS: Initial Reviewer: [email or web address] Initial Review Date: 06/30/2019 Generated: 07/08/19 10:48 am Comments DCP- Discharge Planning Updated by [email or web address]: Mikki Kevin on 07/06/19 10:[address] [facility] IMM served and explained. [facility]. He will go to a skilled bed DCP- Discharge Planning Updated by [id number]: Mikki Kevin on 07/05/19 1:[address] PATIENT HAS BEEN AUTHORIZED TO GO BACK [facility] WHEN HE IS STABLE TO GO BACK DCP- Discharge Planning Updated by [email or web address]: Mikki Kevin on 07/03/19 1:[address] Patient Name: SONNY NEGRON Admission Status: ER Accout number: [id number] Admission Date: 06-30-2019 : 1940 Admission Diagnosis:SEPSIS, UNSPECIFIED ORGANISM Attending: MIKE MODI Current LOS: 3 Anticipated DC Date: Planned Disposition: Long Term Facility Primary Insurance: [employer] Discharge Planning Comments: CM met with patient to complete initial dc planning assessment. CM educated patient on the CM role and verbal consent given by patient to complete assessment. Patient was admitted from [facility] from a skilled bed. He plans to return there at discharge. I have contacted Gina and will send clinicals to start the Auth process again. Patient denied known discharge needs at this time. CM will continue to follow and will assist as needed with dc plans/needs. Waiter/Waitress Buffet: Mikki Kevin DCPIA - Discharge Planning Initial Assessment Updated by [email or web address]: Mikki Kevin on 07/03/19 2:01 pm * Is the patient Alert and Oriented? Yes * How many steps to enter\exit or inside your home? none * PCP madhu * Pharmacy [facility] * Preadmission Environment Home with Family * ADLs Independent * Equipment Nebulizer Rolling Walker * List name and contact numbers for known caregivers / representatives who currently or will assist patient after discharge: LEONEL (SON)[phone] * Verbal permission to speak to the caregivers and representatives has been obtained from the patient. N/A * Additional services required to return to the preadmission environment? Yes * Can the patient safely return to the preadmission environment? Yes * Has this patient been hospitalized within the prior 30 days at any hospital? Yes Coverage Notice Reviewer: [id number] Darin Kevin Notice Issued Date-Time: 07/06/2019 8:15 Notice Type: Patient Choice Letter Notice Delivered To: Patient Relationship to Patient: Ergonomist Name: Delivery Method: HAND - Hand Delivered Rachelle Days: Prior Verbal Notification: Recipient Understood Notice: Yes Recipient Signature: Yes Med Rec Note Co-signed by Attending: Coverage Notice Comment: [facility] Reviewer: [email or web address] Darin Kevin Notice Issued Date-Time: 07/06/2019 8:15 Notice Type: IM Discharge Notice Notice Delivered To: Patient Relationship to Patient: Ergonomist Name: Delivery Method: HAND - Hand Delivered Rachelle Days: Prior Verbal Notification: Recipient Understood Notice: Yes Recipient Signature: Yes Med Rec Note Co-signed by Attending: Coverage Notice Comment: Last DP export: 07/06/19 10:39 a Patient Name: SONNY NEGRON Page 11895 at 0948 All edits/amendments must be made on the electronic document DICTATION DATE: 07/08/19947 GEOTHERMAL OPERATIONS ENGINEER: ELICEO 07/08/19947 RPT#: [id number] DC DATE:07/06/19 STATUS: DIS IN [facility] [address] [place] [address] END OF REPORT
[2019-07-10 18:08] LABS: OVA + PARASITE EXAM Final report (())
== END 2019-07-06 15:00 | DRG 871 ==
LOC: D.ER 05:52 → D.MS 07:20
PROVIDERS: Family Medicine; Internal Medicine Nephrology; ADMIT Emergency Medicine; ATTEND Emergency Medicine
DX: A41.9 Sepsis, unspecified organism (principal); J18.9 Pneumonia, unspecified organism; J96.21 Acute and chronic respiratory failure with hypoxia; J96.22 Acute and chronic respiratory failure with hypercapnia; I21.4 Non-ST elevation (NSTEMI) myocardial infarction; J44.0 Chronic obstructive pulmonary disease with (acute) lower respiratory infection; J44.1 Chronic obstructive pulmonary disease with (acute) exacerbation; Z66 Do not resuscitate; D64.9 Anemia, unspecified; I25.10 Atherosclerotic heart disease of native coronary artery without angina pectoris; I10 Essential (primary) hypertension; M54.9 Dorsalgia, unspecified; G62.9 Polyneuropathy, unspecified; E78.5 Hyperlipidemia, unspecified